=== PATIENT | male | born 1975 | race Caucasian/White ===

== ENCOUNTER 2022-03-04 20:14 | Inpatient (IN) | payer MEDICAID, SELFPAY ==
--- NOTE | ~2022-03-04 | US_ITS ---
EXAMINATION: ULTRASOUND-GUIDED PARACENTESIS CLINICAL INFORMATION: Ascites COMPARISON: None TECHNIQUE: Seizure medicine benefits including bleeding, infection and low blood pressure were discussed with the patient and informed consent was obtained. The right lower quadrant was prepped and draped in the usual sterile fashion. Skin and soft tissues were anesthetized with 1% lidocaine plain. Using ultrasound guidance and a 5 [place] rapid centesis catheter, access to the ascitic fluid was obtained. 3.3 L of clear yellow fluid was removed. Diagnostic specimen was sent as requested by the ordering physician. FINDINGS: There is a small to moderate amount of ascites. US/US paracentesis abd w/image IMPRESSION: Ultrasound-guided paracentesis.
--- NOTE | ~2022-03-04 | CT_ITS ---
EXAMINATION: CT ABDOMEN AND PELVIS WITHOUT CONTRAST CLINICAL INFORMATION: Abdominal pain COMPARISON: None TECHNIQUE: Multidetector volumetric imaging was performed from the superior aspect of the liver through the pubic symphysis. Sagittal and coronal reformatted images were obtained on the technologist's workstation. This CT examination was performed using dose optimization techniques as appropriate, variously including the following: *Automated exposure control *Adjustment of mA and/or kV according to patient size (this includes techniques or standardized protocols for targeted exams where dose is matched to indication/reason for exam; i.e. extremities or head) *Use of iterative reconstruction technique DLP: 632 mGy-cm FINDINGS: LUNG BASES: Small calcified granulomas in the left lower lobe and left hilum. Lung bases otherwise clear. LIVER, GALLBLADDER, AND BILIARY TREE: The liver is mildly enlarged of the right lobe measuring 18.3 cm in craniocaudal extent. Slightly nodular liver surface contour and slight prominence of the caudate lobe. Suspected recanalized periumbilical vein. No gross liver lesions. No biliary ductal dilation. Incompletely distended. No calcified gallstones. Nonspecific pericholecystic fluid in the setting of ascites. PANCREAS: Unremarkable. SPLEEN: Normal size. No splenic lesion. ADRENAL GLANDS: Unremarkable. KIDNEYS AND URETERS: The kidneys are normal in size, shape, and attenuation. No hydronephrosis, hydroureter, or calculi seen. No perinephric stranding. BLADDER: Unremarkable. GASTROINTESTINAL TRACT: Small hiatal hernia. No dilated bowel loops. Slightly thick-walled appearance of the cecum. No other bowel wall thickening. Moderate to large volume ascites and diffuse mesenteric edema. No intra-abdominal free air. Appendix is visualized and appears normal caliber though surrounded by ascites. ABDOMINAL WALL: Small fat-containing umbilical hernia. LYMPH NODES: No appreciable lymphadenopathy. VASCULAR: Normal caliber abdominal aorta. Dilated IMV with perirectal varices. Possible small paraesophageal varices-Limited assessment due to lack of intravenous contrast. PELVIC VISCERA: Unremarkable. OSSEOUS STRUCTURES: No acute fracture or suspicious osseous lesion. Multilevel degenerative disc disease most prominently at L2-L3 and L3-L4 where there is moderate disc height loss and mild retrolisthesis. CT/CT abdomen pelvis wo con IMPRESSION: 1. Findings suggesting underlying liver disease/fibrosis and portal hypertension with recanalized umbilical vein, dilated IMV with large perirectal varices, and moderate to large volume ascites. Additional possible small paraesophageal varices. Correlate with history of known liver disease/cirrhosis. 2. Slightly thick-walled appearance of the cecum which could be due to focal colitis or portal colopathy. No additional bowel wall thickening. No dilated bowel loops.
--- NOTE | ~2022-03-04 | XR_ITS ---
EXAMINATION: XR CHEST CLINICAL INFORMATION: Cough COMPARISON: Chest x-ray 12/30/2008 TECHNIQUE: Frontal view of the chest was obtained. FINDINGS: No airspace consolidation. Calcified granulomas in the left lower lung and left hilum are redemonstrated. Cardiomediastinal silhouette is within normal limits. No evidence of pulmonary edema. No acute osseous injury. XR/XR chest 1V IMPRESSION: 1. No acute pulmonary process.
[2022-03-04 20:32] VITALS: BP 139/87; BP 140/90; PULSE 130; PULSE 140; RESP 20; O2SAT 98; BMI 26.2
[2022-03-04 20:47] LABS: MANUAL DIFF FLAG NO
[2022-03-04 20:50] LABS: Basophils Percent Auto 0.3 % (0-2); Hematocrit 26.4 % (42.0-52.0); Hemoglobin 8.8 g/dl (14.0-18.0); Imm Gran Abs Auto 0.04 X10*3/uL (0.00-0.03); Imm Gran Pct Auto 0.4 % (0.0-0.4); Lymphocytes Absolute Auto 2.2 X10*3/uL (1.2-4.9); Lymphocytes Percent Auto 20.8 % (20-40); Mean Corpuscular HGB Conc 33.3 g/dl (31.0-36.0); Mean Corpuscular Hemoglobin 33.8 pg (27.0-33.0); Mean Corpuscular Volume 101.5 fL (80.0-98.0); Mean Platelet Volume 12.3 fL (9.4-12.4); Monocytes Absolute Auto 0.6 X10*3/uL (0.1-1.2); Monocytes Percent Auto 5.6 % (2-11); Neutrophils Absolute Auto 7.6 x10*3/uL (2.0-8.3); Neutrophils Percent Auto 72.9 % (45-73); OBS1 POSITIVE (NEGATIVE); Red Cell Distribution Width 18.6 % (11.0-16.0); White Blood Count 10.4 X10*3/uL (4.8-10.8)
[2022-03-04 20:51] LABS: OBS Int Ctl Valid YES; Platelet Count 91 X10*3/uL (160-400)
--- NOTE | 2022-03-04 20:53 | ED_ITS ---
HPI - Nausea/Vomiting/Diarrhea General Chief complaint: GI Bleed Stated complaint: n/v/d ?gi bleed Time Seen by Provider: 03/04/22 20:36 Source: patient and EMS Mode of arrival: EMS Limitations: no limitations History of Present Illness HPI Narrative: this is a 46 years old male with history of alcohol abuse presented to the emergency department with a chief complaint of nausea vomiting diarrhea. He states that he drinks daily for the last couple of days has been vomiting and having diarrhea. Also he states that he has black stools. He denies any fever. MD elicited complaint: nausea, vomiting and diarrhea Pertinent past history: alcohol abuse Onset (ago): day(s) (2) Description of vomiting: watery Description of diarrhea: watery Associated nausea: Yes Associated abdominal pain: No Quality: cramping Exacerbating factors: vomiting Relieving factors: vomiting Associated symptoms: denies other symptoms Related Data Home Medications Medication Instructions Recorded Confirmed folic acid 1 mg tablet 1 mg PO DAILY 03/04/22 03/04/22 lisinopril 20 mg tablet 20 mg PO DAILY 03/04/22 03/04/22 multivitamin 1 tab PO DAILY 03/04/22 03/04/22 pyridoxine (vitamin B6) 100 mg 100 mg PO DAILY 03/04/22 03/04/22 tablet thiamine HCl (vitamin B1) 100 mg 100 mg PO DAILY 03/04/22 03/04/22 tablet Allergies Allergy/AdvReac Type Severity Reaction Status Date / Time No Known Allergies Allergy Unverified 05/08/20 15:09 Review of Systems Review of Systems: Yes all other systems are reviewed and are negative Respiratory: Respiratory: Reports no additional respiratory complaints Gastrointestinal: Gastrointestinal: Reports nausea and Reports vomiting [facility] Past Medical History [facility] Narrative: Alcohol abuse,Esophageal varices Social History Social History Advance Directives: No Physical Exam Vital Signs: Vital Signs: Last Vital Signs Pulse 130 H 03/04/22 20:32 Resp 20 03/04/22 20:32 BP 139/87 03/04/22 20:32 Pulse Ox 98 03/04/22 20:32 O2 Del Method 03/04/22 20:32 BMI result Body Mass Index 26.2 Const: General: cooperative and anxious Nutritional Appearance: average body habitus Orientation/consciousness: patient oriented x3 Limitations: no limitations HEENT: Head: Yes normal to inspection Face and sinus: Yes normal facial exam Mouth: Normal oral and palatal mucosa present Throat: Yes posterior oropharynx normal Neck: Neck: Yes normal visual inspection and Yes full ROM Chest: Chest palpation & inspection: normal inspection of the chest Resp: Effort & Inspection: normal respiratory effort Auscultation: clear to auscultation bilaterally Cardio: Jugular venous distension: no JVD Rate: regular rate and tachycardic Rhythm: regular rhythm GI: Inspection: Yes normal to inspection Palpation (GI): Soft to palpation Rectal Exam - Male: Yes normal sphincter tone and Yes heme positive stool Skin: General skin exam: no rashes or lesions noted and elasticity normal Lesions: no lesions Nails: normal Neuro: General: patient oriented x3 Course Reevaluation(s) Reevaluation #1: he states that he is feeling better at this time, heart rate is coming down remain normotensive Time: 21:48 Reevaluation #2: SPOKE WITH GI dr CUNNINGHAM to be keep npo MDM - Nausea/Vomiting/Diarrhea Lab Data Result diagrams: 03/04/22 20:43 03/04/22 20:43 Labs: Lab Results 03/04/22 03/04/22 03/04/22 Range/Units 20:43 20:43 20:43 WBC 10.4 (4.8-10.8) X10*3/uL RBC 2.60 L (4.60-5.80) X10*6/uL Hgb 8.8 L (14.0-18.0) g/dl Hct 26.4 L (42.0-52.0) % MCV 101.5 H (80.0-98.0) fL MCH 33.8 H (27.0-33.0) pg MCHC 33.3 (31.0-36.0) g/dl RDW 18.6 H (11.0-16.0) % Plt Count 91 L (160-400) X10*3/uL MPV 12.3 (9.4-12.4) fL Immature Gran % (Auto) 0.4 (0.0-0.4) % Neut % (Auto) 72.9 (45-73) % Lymph % (Auto) 20.8 (20-40) % [place] % (Auto) 5.6 (2-11) % Eos % (Auto) 0.0 (0-4) % Baso % (Auto) 0.3 (0-2) % Lymph # (Auto) 2.2 (1.2-4.9) X10*3/uL [place] # (Auto) 0.6 (0.1-1.2) X10*3/uL Eos # (Auto) 0.0 (0.0-0.4) X10*3/uL Baso # (Auto) 0.0 (0.0-0.2) X10*3/uL Abs Immat Gran (auto) 0.04 H (0.00-0.03) X10*3/uL Absolute Neuts (auto) 7.6 (2.0-8.3) x10*3/uL Absolute Nucleated RBC 0.000 (0.0-0.012) X10*3/uL Nucleated RBC % (auto) 0.0 (0.0-0.2) /100WBC PT 17.4 H (10.0-13.1) SEC INR 1.5 H (0.9-1.1) APTT 33.0 (24.1-38.0) SEC Sodium 136 (135-145) mmol/L Potassium 4.2 (3.3-5.1) mmol/L Chloride 102 (96-108) mmol/L Carbon Dioxide 22 (22-29) mmol/L Anion Gap 16 (12-20) BUN 21 H (9-16) mg/dL Creatinine 0.86 (0.5-1.4) mg/dL Estim Creat Clear Calc 116.7 Estimated GFR > 60 Random Glucose 128 H (60-115) mg/dL Calcium 9.3 (8.4-10.2) mg/dL Total Bilirubin 2.1 H (0.0-1.0) mg/dL AST 192 H (5-37) U/L ALT 44 H (0-40) U/L Alkaline Phosphatase 92 (39-117) U/L Total Protein 6.8 (6.5-8.0) g/dL Albumin 3.0 L (3.5-5.0) g/dL Lipase 98 H (8-78) U/L Stool Occult Blood (NEGATIVE) COVID-19 (CHAN) (Negative) COVID-19 Clin Com Blood Type Antibody Screen 03/04/22 03/04/22 03/04/22 Range/Units 20:43 20:43 20:51 WBC (4.8-10.8) X10*3/uL RBC (4.60-5.80) X10*6/uL Hgb (14.0-18.0) g/dl Hct (42.0-52.0) % MCV (80.0-98.0) fL MCH (27.0-33.0) pg MCHC (31.0-36.0) g/dl RDW (11.0-16.0) % Plt Count (160-400) X10*3/uL MPV (9.4-12.4) fL Immature Gran % (Auto) (0.0-0.4) % Neut % (Auto) (45-73) % Lymph % (Auto) (20-40) % [place] % (Auto) (2-11) % Eos % (Auto) (0-4) % Baso % (Auto) (0-2) % Lymph # (Auto) (1.2-4.9) X10*3/uL [place] # (Auto) (0.1-1.2) X10*3/uL Eos # (Auto) (0.0-0.4) X10*3/uL Baso # (Auto) (0.0-0.2) X10*3/uL Abs Immat Gran (auto) (0.00-0.03) X10*3/uL Absolute Neuts (auto) (2.0-8.3) x10*3/uL Absolute Nucleated RBC (0.0-0.012) X10*3/uL Nucleated RBC % (auto) (0.0-0.2) /100WBC PT (10.0-13.1) SEC INR (0.9-1.1) APTT (24.1-38.0) SEC Sodium (135-145) mmol/L Potassium (3.3-5.1) mmol/L Chloride (96-108) mmol/L Carbon Dioxide (22-29) mmol/L Anion Gap (12-20) BUN (9-16) mg/dL Creatinine (0.5-1.4) mg/dL Estim Creat Clear Calc Estimated GFR Random Glucose (60-115) mg/dL Calcium (8.4-10.2) mg/dL Total Bilirubin (0.0-1.0) mg/dL AST (5-37) U/L ALT (0-40) U/L Alkaline Phosphatase (39-117) U/L Total Protein (6.5-8.0) g/dL Albumin (3.5-5.0) g/dL Lipase (8-78) U/L Stool Occult Blood POSITIVE (NEGATIVE) COVID-19 ([facility]AN) Negative (Negative) COVID-19 Clin Com See Note Blood Type A Positive Antibody Screen NEGATIVE Discharge Plan Discharge Clinical Impression: Alcohol withdrawal syndrome, Vomiting
[2022-03-04] MEDS: ondansetron HCL 4 MG/2 ML VIAL IVPUSH (20:54)
[2022-03-04] MEDS: Pantoprazole Sodium 40 MG/10 ML VIAL IVPUSH (20:55)
[2022-03-04 20:56] LABS: INTERNATIONAL NORM RATIO 1.5 (0.9-1.1); Prothrombin Time 17.4 SEC (10.0-13.1)
[2022-03-04] MEDS: 0.9 % Sodium Chloride 1,000 ML 999 ML IVCONT (20:57)
[2022-03-04] MEDS: diazePAM 10 MG/2 ML CARTRIDGE 5 MG IVPUSH (21:00)
[2022-03-04 21:08] LABS: COVID-19 Test Negative (Negative)
[2022-03-04 21:11] LABS: Alanine Aminotransferase 44 U/L (0-40); Alkaline Phosphatase 92 U/L (39-117); Anion Gap 16 (12-20); Aspartate Amino Transferase 192 U/L (5-37); Bilirubin Total 2.1 mg/dL (0.0-1.0); Blood Urea Nitrogen 21 mg/dL (9-16); Calcium 9.3 mg/dL (8.4-10.2); Carbon Dioxide 22 mmol/L (22-29); Chloride 102 mmol/L (96-108); Creatinine Clr Calc Pharmacy 116.7; Estimated Glomerular Filt Rate > 60; Glucose Random 128 mg/dL (60-115); Lipase 98 U/L (8-78); Potassium 4.2 mmol/L (3.3-5.1); Sodium 136 mmol/L (135-145); Total Protein 6.8 g/dL (6.5-8.0)
--- NOTE | 2022-03-04 22:17 | PHA.MEDREC ---
Pharmacy Consult ? Medication Reconciliation Pharmacy has completed the medication reconciliation. spoke with pt who knew dosage but not name of bp med. Called [facility] and verified all doses pt reported
--- NOTE | 2022-03-04 22:22 | P.HPHOSP_ITS ---
History of Present Illness Date of Service: 03/04/22 Chief Complaint: Vomiting blood This is a 46-year-old male with past medical history of abuse, as well as esophageal varices who presents to the hospital with complaints of bloody vomitus . Patient reports that he woke up at 2 in the morning with multiple episodes of bloody vomiting that resolved around 04:00. Reports that he could not come to the hospital right away and decided to come to the hospital several hours later. He reports his last drink was at 12:00, he does have history of withdrawals with no withdrawal seizures. Patient reports that he was also admitted to [facility] few weeks ago with the same complaint found to have variceal bleed, he had banding at that time but left AMA. He reports that he continues to drink and has not followed outpatient with GI. He is complaining of epigastric abdominal pain, no diarrhea constipation, no urinary symptoms and no lower extremity edema. No headache or change in vision, numbness tingling. At this time he does feel like he is withdrawing from alcohol as he has shivers, shakes, feels nervous and agitated. On arrival to the ED patient was found to have a heart rate of 130 otherwise vitals unremarkable Labs are significant for WBC count of 10.4, hemoglobin of 8.8, hematocrit 26.4 (when compared to a recent H&H from [facility], H&H stable), lipase of 98, UA negative, UDS positive for barbiturates and marijuana. Patient denies drug use. Stool occult blood positive Abdominal pelvic CT showed underlying liver disease/fibrosis and portal hypertension with recanalized umbilical vein. Dilated IMV with large perirectal varices and moderate to large volume ascites. Additional possible small paraesophageal varices. Patient will be admitted for further management Review of Systems Review of Systems: Yes all other systems are reviewed and are negative [facility] Medical History (Updated 03/05/22 @ 06:09 by Corky Falcon MD) Alcohol abuse Esophageal varices Hypertension Family History (Updated 03/05/22 @ 06:09 by Corky Falcon MD) Father Cancer Surgical History (Updated 03/05/22 @ 06:09 by Corky Falcon MD) No pertinent past surgical history Social History (Updated 03/05/22 @ 06:09 by Corky Falcon MD) Alcohol intake: current Patient Tobacco Use Status: Current everyday Tobacco user Cigarette Packs Per Day: 1 Substance Use Type: Marijuana Advance Directives: No Meds Allergies Allergy/AdvReac Type Severity Reaction Status Date / Time No Known Allergies Allergy Unverified 05/08/20 15:09 Active Medications: Current Medications Acetaminophen (Acetaminophen 325 Mg Tablet) 650 mg PO Q6H PRN PRN Reason: Pain, Mild (Pain Scale 1-3) Docusate Sodium (Docusate Sodium 100 Mg Capsule) 100 mg PO DAILY PRN PRN Reason: Constipation Folic Acid (Folic Acid 1 Mg Tablet) 1 mg PO DAILY [facility] Ondansetron HCl (Ondansetron Hcl 4 Mg/2 Ml Vial) 4 mg IVPUSH Q8H PRN PRN Reason: Nausea and Vomiting Pharmacy Consult (Consult Rx Perform Med Rec) 1 each MISCELLANE ONCE PRN PRN Reason: Consult order Pharmacy Consult (Consult Rx Etoh Phenob Im/Po) 1 each MISCELLANE ONCE PRN; Protocol PRN Reason: Consult order Phenobarbital (Phenobarbital 30 Mg Tablet) 60 mg PO BID [facility]; Protocol Stop: 03/07/22 09:01 Phenobarbital (Phenobarbital 30 Mg Tablet) 30 mg PO BID [facility]; Protocol Stop: 03/09/22 09:01 Phenobarbital (Phenobarbital 30 Mg Tablet) 30 mg PO BEDTIME [facility]; Protocol Stop: 03/10/22 21:01 Phenobarbital Sodium (Phenobarbital Sodium 130 Mg/Ml Vial Im Q3hx2) 226 mg IM Q3H SELMA; Protocol Stop: 03/05/22 04:01 Sodium Chloride (0.9 % Sodium Chloride Flush 3 Ml Syringe) 3 ml IVFLUSH QSHIFT [facility] Thiamine HCl (Thiamine Hcl 100 Mg Tablet) 100 mg PO DAILY [facility] Home Medications Medication Instructions Recorded Confirmed Last Taken Type folic acid 1 mg tablet 1 mg PO DAILY 03/04/22 03/04/22 Unknown History lisinopril 20 mg tablet 20 mg PO DAILY 03/04/22 03/04/22 Unknown History multivitamin 1 tab PO DAILY 03/04/22 03/04/22 Unknown History pyridoxine (vitamin B6) 100 mg 100 mg PO DAILY 03/04/22 03/04/22 Unknown History tablet thiamine HCl (vitamin B1) 100 mg 100 mg PO DAILY 03/04/22 03/04/22 Unknown His tory tablet Physical Exam Vital Signs and Narrative: Vital Signs: Last Vital Signs Pulse 130 H 03/04/22 20:32 Resp 20 03/04/22 20:32 BP 139/87 03/04/22 20:32 Pulse Ox 98 03/04/22 20:32 O2 Del Method 03/04/22 20:32 BMI result Body Mass Index 26.2 Const: General: cooperative and no acute distress Orientation/consciousness: patient oriented x3 Eyes: General: appearance normal, both eyes and all related structures Resp: Effort & Inspection: normal respiratory effort Auscultation: clear to auscultation bilaterally Cardio: Rate: regular rate Rhythm: regular rhythm GI: Other: Abdomen is distended, no tenderness, rebound or guarding Palpation (GI): Soft to palpation Skin: General skin exam: no rashes or lesions noted Neuro: General: patient oriented x3 Cognition (Neuro): normal cognition Extrem: General: Yes normal to inspection and Yes no pedal edema Results Labs CBC and Chem 7: 03/04/22 20:43 03/04/22 20:43 Labs: Laboratory Results - last 24 hr 03/04/22 03/04/22 03/04/22 20:43 20:43 20:43 MCV 101.5 H MCH 33.8 H MCHC 33.3 RDW 18.6 H Plt Count 91 L MPV 12.3 Immature Gran % (Auto) 0.4 Neut % (Auto) 72.9 Lymph % (Auto) 20.8 [place] % (Auto) 5.6 Eos % (Auto) 0.0 Baso % (Auto) 0.3 Lymph # (Auto) 2.2 [place] # (Auto) 0.6 Eos # (Auto) 0.0 Baso # (Auto) 0.0 Abs Immat Gran (auto) 0.04 H Absolute Neuts (auto) 7.6 Absolute Nucleated RBC 0.000 Nucleated RBC % (auto) 0.0 PT 17.4 H INR 1.5 H APTT 33.0 Anion Gap 16 Estim Creat Clear Calc 116.7 Estimated GFR > 60 Random Glucose 128 H Calcium 9.3 Total Bilirubin 2.1 H AST 192 H ALT 44 H Alkaline Phosphatase 92 Total Protein 6.8 Albumin 3.0 L Lipase 98 H Stool Occult Blood COVID-19 ([facility]) COVID-19 Clin Com Blood Type Antibody Screen 03/04/22 03/04/22 03/04/22 20:43 20:43 20:51 MCV MCH MCHC RDW Plt Count MPV Immature Gran % (Auto) Neut % (Auto) Lymph % (Auto) [place] % (Auto) Eos % (Auto) Baso % (Auto) Lymph # (Auto) [place] # (Auto) Eos # (Auto) Baso # (Auto) Abs Immat Gran (auto) Absolute Neuts (auto) Absolute Nucleated RBC Nucleated RBC % (auto) PT INR APTT Anion Gap Estim Creat Clear Calc Estimated GFR Random Glucose Calcium Total Bilirubin AST ALT Alkaline Phosphatase Total Protein Albumin Lipase Stool Occult Blood POSITIVE COVID-19 (CHAN) Negative COVID-19 Clin Com See Note Blood Type A Positive Antibody Screen NEGATIVE Assessment and Plan (1) Hematemesis: Status: Acute (2) GI bleed: Status: Acute (3) Esophageal varices: Status: Acute (4) Alcohol abuse with withdrawal: Status: Acute Plan 46-year-old male with past medical history of alcohol abuse as well as history of variceal bleed from recent hospital stay at [facility] presents to the hospital with hematemesis found to have heme-positive stool and evidence of GI bleed # hematemesis - likely secondary to esophageal varices in the setting of history of liver disease secondary to alcohol abuse - will start him on octreotide, pantoprazole - NPO - GI consulted - hemodynamically stable, H&H stable - has not had any hematemesis well in the ED - close monitoring # esophageal varices - likely secondary to portal hypertension in the setting of alcohol abuse - plan for endoscopy in a.m. - octreotide drip # alcohol abuse with withdrawal - daily drinker - has evidence of alcohol withdrawal - start on phenobarb protocol - thiamine and folic acid supplement # hypertension - continue lisinopril DVT prophylaxis: SCDs in the setting of hematemesis Given the need for further evaluation patient will require a minimum 2 night hospital stay for further management and monitoring Quality Stroke Does the patient have a stroke diagnosis?: No VTE Prior VTE?: No VTE Risk Level:: Medical - moderate - high VTE Device Contraindication: N/A - Device Ordered VTE Drug Contraindication: Treatment Not Indicated
[2022-03-04] MEDS: PHENobarbitaL sodium 130 MG/ML IM ONCE 300 MG IM (22:40)
--- NOTE | 2022-03-04 22:45 | PC.NURSE ---
pharmacy contacted for verification of octritide .
--- NOTE | 2022-03-04 22:51 | ED_ITS ---
HPI - Nausea/Vomiting/Diarrhea General Chief complaint: GI Bleed Stated complaint: n/v/d ?gi bleed Time Seen by Provider: 03/04/22 20:36 Source: patient Mode of arrival: EMS History of Present Illness HPI Narrative: this is a 46 years old patient with history of alcohol abuse presented to the emergency department by ambulance complaining of nausea vomiting and diarrhea. He has history of esophageal varices, was hospitalized [facility] end January for upper GI bleeding MD elicited complaint: nausea, vomiting and diarrhea Description of diarrhea: watery and other (black) Associated nausea: Yes Radiation: diffuse Quality: cramping Exacerbating factors: none Relieving factors: none Associated symptoms: diaphoresis, loss of appetite and nausea/vomiting Related Data Home Medications Medication Instructions Recorded Confirmed folic acid 1 mg tablet 1 mg PO DAILY 03/04/22 03/04/22 lisinopril 20 mg tablet 20 mg PO DAILY 03/04/22 03/04/22 multivitamin 1 tab PO DAILY 03/04/22 03/04/22 pyridoxine (vitamin B6) 100 mg 100 mg PO DAILY 03/04/22 03/04/22 tablet thiamine HCl (vitamin B1) 100 mg 100 mg PO DAILY 03/04/22 03/04/22 tablet Allergies Allergy/AdvReac Type Severity Reaction Status Date / Time No Known Allergies Allergy Unverified 05/08/20 15:09 Review of Systems Constitutional: Constitutional: Reports no additional constitutional complaints Eyes: Eyes: Reports no additional eye complaints Cardiovascular: Cardiovascular: Reports lightheadedness Gastrointestinal: Gastrointestinal: Reports no additional gastrointestinal complaints, Reports diarrhea, Reports loose stools, Reports nausea and Reports vomiting [facility] Past Medical History [facility] Narrative: alcohol abuse, esophageal varices Social History Social History Advance Directives: No Physical Exam Vital Signs: Vital Signs: Last Vital Signs Pulse 124 H 03/04/22 22:58 Resp 20 03/04/22 22:58 BP 119/84 03/04/22 22:58 Pulse Ox 94 03/04/22 22:58 O2 Del Method 03/04/22 22:58 BMI result Body Mass Index 26.2 Const: General: cooperative and anxious Nutritional Appearance: average body habitus Orientation/consciousness: patient oriented x3 Limitations: no limitations HEENT: Head: Yes normal to inspection General nose exam: Normal external nose present Face and sinus: Yes normal facial exam Mouth: Normal oral and palatal mucosa present Throat: Yes posterior oropharynx normal Neck: Neck: Yes normal visual inspection and Yes full ROM Chest: Chest palpation & inspection: normal inspection of the chest Resp: Effort & Inspection: normal respiratory effort and able to speak in complete sentences Auscultation: clear to auscultation bilaterally Cardio: Jugular venous distension: no JVD Rate: regular rate and tachycardic GI: Inspection: Yes normal to inspection Palpation (GI): Soft to palpation Rectal Exam - Male: Yes heme positive stool Skin: General skin exam: no rashes or lesions noted Neuro: General: patient oriented x3 Cranial nerves: Yes CN's II-XII intact bilaterally Course Reevaluation(s) Reevaluation #1: he is improving clinically his heart coming down remain normotensive. I discussed the case with GI Dr. Dawn and hospitalist. The patient will be admitted to telemetry Time: 22:56 MDM - Nausea/Vomiting/Diarrhea Lab Data Result diagrams: 03/04/22 20:43 03/04/22 20:43 Labs: Lab Results 03/04/22 03/04/22 03/04/22 Range/Units 20:43 20:43 20:43 WBC 10.4 (4.8-10.8) X10*3/uL RBC 2.60 L (4.60-5.80) X10*6/uL Hgb 8.8 L (14.0-18.0) g/dl Hct 26.4 L (42.0-52.0) % MCV 101.5 H (80.0-98.0) fL MCH 33.8 H (27.0-33.0) pg MCHC 33.3 (31.0-36.0) g/dl RDW 18.6 H (11.0-16.0) % Plt Count 91 L (160-400) X10*3/uL MPV 12.3 (9.4-12.4) fL Immature Gran % (Auto) 0.4 (0.0-0.4) % Neut % (Auto) 72.9 (45-73) % Lymph % (Auto) 20.8 (20-40) % [place] % (Auto) 5.6 (2-11) % Eos % (Auto) 0.0 (0-4) % Baso % (Auto) 0.3 (0-2) % Lymph # (Auto) 2.2 (1.2-4.9) X10*3/uL [place] # (Auto) 0.6 (0.1-1.2) X10*3/uL Eos # (Auto) 0.0 (0.0-0.4) X10*3/uL Baso # (Auto) 0.0 (0.0-0.2) X10*3/uL Abs Immat Gran (auto) 0.04 H (0.00-0.03) X10*3/uL Absolute Neuts (auto) 7.6 (2.0-8.3) x10*3/uL Absolute Nucleated RBC 0.000 (0.0-0.012) X10*3/uL Nucleated RBC % (auto) 0.0 (0.0-0.2) /100WBC PT 17.4 H (10.0-13.1) SEC INR 1.5 H (0.9-1.1) APTT 33.0 (24.1-38.0) SEC Sodium 136 (135-145) mmol/L Potassium 4.2 (3.3-5.1) mmol/L Chloride 102 (96-108) mmol/L Carbon Dioxide 22 (22-29) mmol/L Anion Gap 16 (12-20) BUN 21 H (9-16) mg/dL Creatinine 0.86 (0.5-1.4) mg/dL Estim Creat Clear Calc 116.7 Estimated GFR > 60 Random Glucose 128 H (60-115) mg/dL Calcium 9.3 (8.4-10.2) mg/dL Total Bilirubin 2.1 H (0.0-1.0) mg/dL AST 192 H (5-37) U/L ALT 44 H (0-40) U/L Alkaline Phosphatase 92 (39-117) U/L Total Protein 6.8 (6.5-8.0) g/dL Albumin 3.0 L (3.5-5.0) g/dL Lipase 98 H (8-78) U/L Stool Occult Blood (NEGATIVE) COVID-19 ([facility]) (Negative) COVID-19 Clin Com Blood Type Antibody Screen 03/04/22 03/04/22 03/04/22 Range/Units 20:43 20:43 20:51 WBC (4.8-10.8) X10*3/uL RBC (4.60-5.80) X10*6/uL Hgb (14.0-18.0) g/dl Hct (42.0-52.0) % MCV (80.0-98.0) fL MCH (27.0-33.0) pg MCHC (31.0-36.0) g/dl RDW (11.0-16.0) % Plt Count (160-400) X10*3/uL MPV (9.4-12.4) fL Immature Gran % (Auto) (0.0-0.4) % Neut % (Auto) (45-73) % Lymph % (Auto) (20-40) % [place] % (Auto) (2-11) % Eos % (Auto) (0-4) % Baso % (Auto) (0-2) % Lymph # (Auto) (1.2-4.9) X10*3/uL [place] # (Auto) (0.1-1.2) X10*3/uL Eos # (Auto) (0.0-0.4) X10*3/uL Baso # (Auto) (0.0-0.2) X10*3/uL Abs Immat Gran (auto) (0.00-0.03) X10*3/uL Absolute Neuts (auto) (2.0-8.3) x10*3/uL Absolute Nucleated RBC (0.0-0.012) X10*3/uL Nucleated RBC % (auto) (0.0-0.2) /100WBC PT (10.0-13.1) SEC INR (0.9-1.1) APTT (24.1-38.0) SEC Sodium (135-145) mmol/L Potassium (3.3-5.1) mmol/L Chloride (96-108) mmol/L Carbon Dioxide (22-29) mmol/L Anion Gap (12-20) BUN (9-16) mg/dL Creatinine (0.5-1.4) mg/dL Estim Creat Clear Calc Estimated GFR Random Glucose (60-115) mg/dL Calcium (8.4-10.2) mg/dL Total Bilirubin (0.0-1.0) mg/dL AST (5-37) U/L ALT (0-40) U/L Alkaline Phosphatase (39-117) U/L Total Protein (6.5-8.0) g/dL Albumin (3.5-5.0) g/dL Lipase (8-78) U/L Stool Occult Blood POSITIVE (NEGATIVE) COVID-19 ([facility]) Negative (Negative) COVID-19 Clin Com See Note Blood Type A Positive Antibody Screen NEGATIVE Imaging Data CT scan - abdomen: Radiologist's impression: ?IMV with perirectal varices. Possible small paraesophageal varices-Limited assessment due to lack of intravenous contrast. PELVIC VISCERA: Unremarkable.? OSSEOUS STRUCTURES: No acute fracture or suspicious osseous lesion. Multilevel degenerative disc disease most prominently at L2-L3 and L3-L4 where there is moderate disc height loss and mild retrolisthesis. ? CT/CT abdomen pelvis wo con IMPRESSION: ? 1. Findings suggesting underlying liver disease/fibrosis and portal hypertension with recanalized umbilical vein, dilated IMV with large perirectal varices, and moderate to large volume ascites. Additional possible small paraesophageal varices. Correlate with history of known liver disease/cirrhosis. 2. Slightly thick-walled appearance of the cecum which could be due to focal colitis or portal colopathy. No additional bowel wall thickening. No dilated bowel loops.? ? Critical Care Time Critical Care Time Critical Care Time: Yes Total Critical Care Time: 60 Attestation: IV valium,Phenobarbital Discharge Plan Discharge Clinical Impression: Alcohol withdrawal syndrome, Vomiting
[2022-03-04 22:58] VITALS: BP 119/84; PULSE 124; RESP 20; O2SAT 94
[2022-03-04] MEDS: Octreotide Acetate 100 MCG/ML AMPUL 50 MCG IVPUSH (23:06)
[2022-03-04] MEDS: Octreotide Acetate 500 MCG in 0.9 % Sodium Chloride 500 ML 50.1 MCG IVCONT (23:06)
[2022-03-04] MEDS: Lactated Ringers 1,000 ML 100 ML IVCONT (23:10)
[2022-03-05] VITALS (14 sets, daily range): BP systolic 80–136; BP diastolic 46–82; PULSE 58–115; RESP 15–24; TEMP 36.7–37.4; O2SAT 92–100
[2022-03-05] MEDS: Nicotine 21 MG PATCH.TD24 TRANSDERMA (00:17)
[2022-03-05] MEDS: PHENobarbitaL sodium 130 MG/ML VIAL IM Q3Hx2 226 MG IM ×3 (01:04→11:43)
[2022-03-05 04:26] LABS: Appearance Urine CLOUDY; Color Urine YELLOW; Glucose Urine UA NEG (NEG); Leukocyte Esterase Urine NEG (NEG); Nitrite Urine NEG (NEG); Urine Blood NEG (NEG); Urine Ketones NEG (NEG); Urine Protein NEG (NEG-TRACE)
[2022-03-05 04:39] LABS: Amphetamine Screen Urine Not Detected (Not Detect); Barbiturates, Urine POSITIVE (Not Detect); Benzodiazepines Screen Urine Not Detected (Not Detect); Cannabinoid Screen Urine POSITIVE (Not Detect); Cocaine Screen Urine Not Detected (Not Detect); Fentanyl, urine Not Detected (Not Detect); Opiate Screen Urine Not Detected (Not Detect); Phencyclidine Screen Urine Not Detected (Not Detect)
[2022-03-05 05:04] LABS: Amorphous Sediment Urine 3+ /LPF; Mucus Urine 1+ /LPF; RBC Urine 0 /HPF (0); WBC Urine 0-2 /HPF (0-4)
--- NOTE | 2022-03-05 05:26 | PC.NURSE ---
pt resting in bed, no distress
[2022-03-05] MEDS: Pantoprazole Sodium 40 MG/10 ML VIAL IVPUSH ×2 (06:07→16:54)
[2022-03-05 06:46] LABS: MANUAL DIFF FLAG NO
[2022-03-05 06:51] LABS: Basophils Percent Auto 0.4 % (0-2); Eosinophils Percent Auto 0.4 % (0-4); Hematocrit 24.5 % (42.0-52.0); Imm Gran Abs Auto 0.03 X10*3/uL (0.00-0.03); Imm Gran Pct Auto 0.4 % (0.0-0.4); Lymphocytes Absolute Auto 1.8 X10*3/uL (1.2-4.9); Lymphocytes Percent Auto 23.7 % (20-40); Mean Corpuscular HGB Conc 32.7 g/dl (31.0-36.0); Mean Corpuscular Hemoglobin 33.8 pg (27.0-33.0); Mean Corpuscular Volume 103.4 fL (80.0-98.0); Mean Platelet Volume 11.6 fL (9.4-12.4); Monocytes Absolute Auto 0.4 X10*3/uL (0.1-1.2); Neutrophils Absolute Auto 5.3 x10*3/uL (2.0-8.3); Neutrophils Percent Auto 70.1 % (45-73); Red Blood Count 2.37 X10*6/uL (4.60-5.80); Red Cell Distribution Width 19.2 % (11.0-16.0); White Blood Count 7.6 X10*3/uL (4.8-10.8)
[2022-03-05 06:52] LABS: Platelet Count 58 X10*3/uL (160-400)
[2022-03-05 07:40] LABS: Anion Gap 13 (12-20); Blood Urea Nitrogen 19 mg/dL (9-16); Calcium 8.2 mg/dL (8.4-10.2); Carbon Dioxide 22 mmol/L (22-29); Chloride 107 mmol/L (96-108); Estimated Glomerular Filt Rate > 60; Glucose Random 130 mg/dL (60-115); Potassium 4.7 mmol/L (3.3-5.1); Sodium 137 mmol/L (135-145)
--- NOTE | 2022-03-05 07:40 | P.CNGI_ITS ---
History of Present Illness Data of Consult Service Date: 03/05/22 Requesting physician: Corky Falcon Primary Care Provider: Adriana Rivera NP HPI Reason for consult: GI Bleeding 46 YM with history of alcohol abuse, as well as esophageal varices who came to [facility] ED on 03/04/22 with complaints of upper abdominal pain and bloody vomitus .? Patient reported that he woke up at 2 am with multiple episodes of bloody vomiting that resolved around 04:00 am.? He noted diffuse stabbing 8/10 abdominal pain with nausea. He noted that he could not come to the hospital right away and decided to come to the hospital several hours later.? Pt reported his last drink was at 12:00 and admits to a history of withdrawals with no withdrawal seizures.? He has not had anything to eat for the past 1.5 days. Patient denies symptoms of dysphagia. He admits to having black stools yeseterday every 20 minutes - none overnight. Patient denies major cardiac or pulmonary problems and admits to loud snoring and denies sleep apnea Denies problems with anesthesia in the past. Denies taking aspirin or NSAIDS or being on chronic anticoagulation. PT admits to smoking 1 pack per day and drinks 15 nips of vodka daily for the past several years. Patient lives with his mother and has one 22-year-old son. 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 Patient denies known family history of liver disease, colon polyps, colon cancer or other GI malignancies. Patient reported that he was also admitted [place] [facility] [place] ago with the same complaint found to have variceal bleed, he had banding at that time but left AMA.? He reports that he continues to drink and has not followed outpatient with GI.? Pt compains of dizziness and shortness of breath. He denies fever, chills or sweating and admits to having hot and cold flashes No headache or change in vision, numbness tingling.? At this time he does feel like he is withdrawing from alcohol as he has shivers, shakes, feels nervous and agitated.? On arrival to the ED patient was found to have a heart rate of 130 otherwise vitals unremarkable Labs are significant for WBC count of 10.4, hemoglobin of 8.8, hematocrit 26.4 (when compared to a recent H&H from [facility], H&H stable), lipase of 98, UA negative, UDS positive for barbiturates and marijuana.? Patient denies drug use.? Stool occult blood positive Abdominal pelvic CT showed underlying liver disease/fibrosis and portal hypertension with recanalized umbilical vein.? Dilated IMV with large perirectal varices and moderate to large volume ascites.? Additional possible small paraesophageal varices. Patient was admitted for further management and started on CIWA protocol, IV PPI and IV octreotide infusion. IMAGING STUDIES: 03/04/[address] SCAN SHOWED: 1. Findings suggesting underlying liver disease/fibrosis and portal hypertension with recanalized umbilical vein, dilated IMV with large perirectal varices, and moderate to large volume ascites. Additional possible small paraesophageal varices. Correlate with history of known liver disease/cirrhosis. 2. Slightly thick-walled appearance of the cecum which could be due to focal colitis or portal colopathy. No additional bowel wall thickening. No dilated bowel loops.? ENDOSCOPIC STUDIES: [] Review of Systems Constitutional: Constitutional: Reports no additional constitutional complaints Eyes: Eyes: Reports no additional eye complaints Cardiovascular: Cardiovascular: Reports lightheadedness and Reports dyspnea on exertion Respiratory: Respiratory: Reports dyspnea on exertion Gastrointestinal: Gastrointestinal: Reports abdominal pain, Reports diarrhea, Reports loose stools, Reports nausea, Reports vomiting and Reports other (Poor appetite) [facility] Past Medical History Medical History Alcohol abuse Cirrhosis Decompensated hepatic cirrhosis Esophageal varices Hypertension Family History Family History Father Cancer Surgical History Surgical History No pertinent past surgical history Social History Social History Household Members: Family Housing: House Alcohol intake: current Alcohol intake frequency: 3 or more drinks per day Alcohol type: hard liquor Patient Tobacco Use Status: Current everyday Tobacco user Tobacco use type: Cigarette Cigarette Packs Per Day: 1 Cigarettes Per Day: 20.0 Substance Use Type: Marijuana Advance Directives: No Advance Directives Information Provided: No service: No Current occupational status: employed Meds Allergies Allergy/AdvReac Type Severity Reaction Status Date / Time No Known Allergies Allergy Verified 04/12/22 12:24 Active Medications: Current Medications Acetaminophen (Acetaminophen 325 Mg Tablet) 650 mg PO Q6H PRN PRN Reason: Pain, Mild (Pain Scale 1-3) Docusate Sodium (Docusate Sodium 100 Mg Capsule) 100 mg PO DAILY PRN PRN Reason: Constipation Folic Acid (Folic Acid 1 Mg Tablet) 1 mg PO DAILY [facility] Last Admin: 03/04/22 22:41 Dose: Not Given Lactated Ringer's (Lr) 1,000 mls @ 100 mls/hr IVCONT .Q10H [facility] Last Admin: 03/04/22 23:10 Dose: 100 mls/hr Octreotide Acetate 500 mcg/ (Sodium Chloride) 501 mls @ 50.1 mls/hr IVCONT .Q10H [facility] Last Admin: 03/04/22 23:06 Dose: 50 mcg/hr, 50.1 mls/hr Lisinopril (Lisinopril 20 Mg Tablet) 20 mg PO DAILY [facility]; Protocol Multivitamins/Vitamin C (Multivitamin Tablet) 1 tab PO DAILY [facility] Nicotine (Nicotine 21 Mg Patch.Td24) 21 mg TRANSDERMA DAILY [facility] Last Admin: 03/05/22 00:17 Dose: 21 mg Ondansetron HCl (Ondansetron Hcl 4 Mg/2 Ml Vial) 4 mg IVPUSH Q8H PRN PRN Reason: Nausea and Vomiting Pantoprazole Sodium (Pantoprazole Sodium 40 Mg/10 Ml Vial) 40 mg IVPUSH BID@0630,1630 [facility] Last Admin: 03/05/22 06:07 Dose: 40 mg Pharmacy Consult (Consult Rx Perform Med Rec) 1 each MISCELLANE ONCE PRN PRN Reason: Consult order Pharmacy Consult (Consult Rx Etoh Phenob Im/Po) 1 each MISCELLANE ONCE PRN; Protocol PRN Reason: Consult order Phenobarbital (Phenobarbital 30 Mg Tablet) 60 mg PO BID [facility]; Protocol Stop: 03/07/22 09:01 Phenobarbital (Phenobarbital 30 Mg Tablet) 30 mg PO BID [facility]; Protocol Stop: 03/09/22 09:01 Phenobarbital (Phenobarbital 30 Mg Tablet) 30 mg PO BEDTIME [facility]; Protocol Stop: 03/10/22 21:01 Pyridoxine HCl (Pyridoxine Hcl (Vitamin B6) 50 Mg Tablet) 100 mg PO DAILY [facility] Sodium Chloride (0.9 % Sodium Chloride Flush 3 Ml Syringe) 3 ml IVFLUSH QSHIFT [facility] Last Admin: 03/05/22 00:18 Dose: Not Given Thiamine HCl (Thiamine Hcl 100 Mg Tablet) 100 mg PO DAILY [facility] Home Medications Medication Instructions Recorded Confirmed Last Taken Type folic acid 1 mg tablet 1 mg PO DAILY 03/04/22 03/04/22 Unknown History multivitamin 1 tab PO DAILY 03/04/22 03/04/22 Unknown History pyridoxine (vitamin B6) 100 mg 100 mg PO DAILY 03/04/22 03/04/22 Unknown History tablet thiamine HCl (vitamin B1) 100 mg 100 mg PO DAILY 03/04/22 03/04/22 Unknown History tablet Physical Exam Vital Signs: Vital Signs: Last Vital Signs Temp 99.4 F 03/05/22 04:15 Pulse 113 H 03/05/22 04:15 Resp 22 H 03/05/22 04:15 BP 119/82 03/05/22 04:15 Pulse Ox 92 03/05/22 04:15 O2 Del Method 03/05/22 04:15 O2 Flow Rate 3 03/05/22 04:15 BMI result Body Mass Index 26.2 Const: General: no acute distress, ill appearing and lethargic (arousable and responds appropriately to questions) Nutritional Appearance: overweight Orientation/consciousness: patient oriented x3 and lethargic (arousable and responds appropriately to questions) Limitations: no limitations HEENT: Head: Yes normal to inspection Ears: hearing grossly normal bilaterally Mouth: Normal oral and palatal mucosa present Eyes: Sclerae: sclerae normal Pupils: Equal, round and reactive pupils present Neck: Neck: Yes normal visual inspection Chest: Chest palpation & inspection: normal inspection of the chest Resp: Effort & Inspection: normal respiratory effort Auscultation: clear to auscultation bilaterally Cardio: Palpation: normal PMI Rate: regular rate Rhythm: regular rhythm Heart sounds: S1 normal heart sound present, S2 normal heart sound present and no murmurs GI: Palpation (GI): Soft to palpation, nontender and No hepatosplenomegaly present Auscultation: normal bowel sounds Rectal Exam - Male: Yes deferred Skin: General skin exam: no rashes or lesions noted and spider nevi Neuro: General: patient oriented x3, gait normal and moves all extremities Cranial nerves: Yes Equal, round and reactive pupils present Extrem: General: Yes pedal edema (1+ pitting edema) Psych: Appearance: grossly normal Mental Status: mental status grossly normal Results Labs CBC & Chem 7: 03/09/22 06:46 03/09/22 06:46 Labs: Short CBC 03/04/22 03/05/22 Range/Units 20:43 06:28 WBC 10.4 7.6 (4.8-10.8) X10*3/uL Hgb 8.8 L 8.0 L (14.0-18.0) g/dl Hct 26.4 L 24.5 L (42.0-52.0) % Plt Count 91 L 58 L D (160-400) X10*3/uL BMP 03/04/22 03/05/22 20:43 06:28 Sodium 136 137 Potassium 4.2 4.7 Chloride 102 107 Carbon Dioxide 22 22 BUN 21 H 19 H Creatinine 0.86 0.79 Calcium 9.3 8.2 L D Liver Function 03/04/22 Range/Units 20:43 Total Bilirubin 2.1 H (0.0-1.0) mg/dL AST 192 H (5-37) U/L ALT 44 H (0-40) U/L Alkaline Phosphatase 92 (39-117) U/L Albumin 3.0 L (3.5-5.0) g/dL Urine 03/05/22 Range/Units 04:18 Urine Color YELLOW Urine Appearance CLOUDY Urine pH 7.0 (5.0-8.0) Ur Specific Miles 1.020 (1.005-1.025) Urine Protein NEG (NEG-TRACE) MG/DL Urine Glucose (UA) NEG (NEG) MG/DL Assessment and Plan (1) Alcohol abuse with withdrawal: Status: Inactive (2) Esophageal varices: Status: Inactive (3) GI bleed: Status: Inactive (4) Guaiac + stool: Status: Inactive Plan 46 YM with hypertension and known hx of alcohol abuse complicated by liver disease and esophageal varices admitted with abdominal pain, nausea, poor p.o. intake and hematemesis.? Denies taking aspirin or NSAIDS or being on chronic anticoagulation. PT admits to drinking 15 nips of vodka daily for the past several years. Patient reported that he was also admitted [place] [facility] [place] ago with the same complaint found to have variceal bleed, he had EGD with banding at that time but left AMA.? Labs are significant for WBC count of 10.4, hemoglobin of 8.8, hematocrit 26.4 (when compared to a recent H&H from [facility], H&H stable), lipase of 98, UA negative, UDS positive for barbiturates and marijuana.? Stool occult blood positive Abdominal pelvic CT showed underlying liver disease/fibrosis and portal hypertension with recanalized umbilical vein.? Dilated IMV with large perirectal varices and moderate to large volume ascites.? Additional possible small paraesophageal varices. RECOMMENDATIONS: 1. Agree wiith CIWA protocol, IV PPI and IV octreotide infusion. 2. Follow H & H Q 8 hrly x 24 hrs and the twice daily if stable 3. Proceed with EGD today - procedure and potential complications were reviewed with the patient. 4. He needs alcohol rehab to help him stop drinking. Procedures Date of Service Date of Service: 03/05/22
[2022-03-05 08:14] LABS: Magnesium 1.7 mg/dL (1.6-2.6)
[2022-03-05] MEDS: Octreotide Acetate 500 MCG in 0.9 % Sodium Chloride 500 ML 50.1 MCG IVCONT ×2 (08:45→18:09)
[2022-03-05] MEDS: Thiamine HCL 100 MG TABLET PO (08:54)
[2022-03-05] MEDS: Multivitamin TABLET 1 TAB PO (08:54)
[2022-03-05] MEDS: lisinopriL 20 MG TABLET PO (08:54)
[2022-03-05] MEDS: Folic Acid 1 MG TABLET PO (08:54)
--- NOTE | 2022-03-05 10:22 | P.BOP_ITS ---
Brief Operative Note Date of Service: 03/05/22 Pre-op diagnosis: UGI bleed, hx of esophageal varices Post-op diagnosis: other (Esophageal varices, multiple esophageal ulcers related to recent banding and erosive esophagitis, portal gastropathy) Procedure: FLEXIBLE TRANSORAL UPPER GASTROINTESTINAL ENDOSCOPY WITH BIOPSIES Consent: Indications for the procedure and potential complications of bleeding, perforation, reaction to medications and missed diagnosis were discussed with the patient and informed consent was obtained. Instrument: Olympus GIF H 190 mid size upper endoscope Monitoring: Vital signs and clinical assessment, continuous EKG monitoring, Pulse oximetry, Carbon Dioxide monitoring and blood pressure monitoring were done throughout the procedure. Procedure: The patient was placed in the left lateral decubitis position and pre-procedure medications were administered and a bite block was placed. The endoscope was inserted into the mouth and advanced under direct vision to the third part of duodenum. A careful inspection was made as the upper endoscope was withdrawn including a retroflexed examination of the proximal stomach; Findings and interventions are described below. Findings: Larynx: Normal Esophagus: GE junction at 35 cms, hiatal hernia 35 to 38 cms. Grade 3 four column non-bleeding varices from 25 to 35 cms. Multiple ulcers covered with white exudates likely at the site of recent banding with supeimposed reflux esophagitis. Band ligation was not performed due to extensive ulcerations Stomach: Moderate portal gastropathy. Grade 2 flap valve and early gastric varices on retroflexed examination of the cardia. Duodenum: Normal bulb and descending duodenum Intervention: None Impression and Post Procedure Diagnosis: Endoscopy Findings: ESOPHAGUS: GE junction at 35 cms, hiatal hernia 35 to 38 cms. Grade 3 four column non-bleeding varices from 25 to 35 cms. Multiple ulcers covered with white exudates likely at the site of recent banding with supeimposed reflux esophagitis. Band ligation was not performed due to extensive ulcerations STOMACH: Moderate portal gastropathy. Grade 2 flap valve and early gastric varices on retroflexed examination of the cardia. No blood in the UGI tract during EGD Plan: Await pathology results Continue Octreotide infusion for 72 hrs. Start Nadolol 20 mg daily if H & H remains stable over the next 48 hrs. Omeprazole 20 mg twice daily for GERD. Repeat EGD in 3 - 4 months. Surgeon: Gustavo Dawn MD Anesthesia: MAC (Dr Sams) Was an Change Control Analyst used for this Procedure?: Yes Change Control Analyst: Miryam Stoll Estimated blood loss (mL): 0 Pathology: none sent Condition: stable Disposition: PACU
--- NOTE | 2022-03-05 10:24 | W.PM.OPN ---
Operative Note Operative Note Date of Service: 03/05/22 Narrative: Pre-op diagnosis: UGI bleed, hx of esophageal varices Post-op diagnosis:?other (Esophageal varices, multiple esophageal ulcers related to recent banding and erosive esophagitis, portal gastropathy) Procedure: FLEXIBLE TRANSORAL UPPER GASTROINTESTINAL ENDOSCOPY WITH BIOPSIES Consent:?Indications for the procedure and potential complications of bleeding, perforation, reaction to medications and missed diagnosis were discussed with the patient and informed consent was obtained. Instrument:?Olympus GIF H 190 mid size upper endoscope Monitoring: Vital signs and clinical assessment, continuous EKG monitoring, Pulse oximetry, Carbon Dioxide monitoring and blood pressure monitoring were done throughout the procedure. Procedure:?The patient was placed in the left lateral decubitis position and pre-procedure medications were administered and a bite block was placed. The endoscope was inserted into the mouth and advanced under direct vision to the third part of duodenum. A careful inspection was made as the upper endoscope was withdrawn including a retroflexed examination of the proximal stomach; Findings and interventions are described below. Findings: Larynx:? Normal Esophagus: GE junction at 35 cms, hiatal hernia 35 to 38 cms. Grade 3 four column non-bleeding varices from 25 to 35 cms. Multiple ulcers covered with white exudates likely at the site of recent banding with supeimposed reflux esophagitis. Band ligation was not performed due to extensive ulcerations Stomach: Moderate portal gastropathy. Grade 2 flap valve and early gastric varices on retroflexed examination of the cardia. Duodenum: Normal bulb and descending duodenum Intervention: None Impression and Post Procedure Diagnosis: Endoscopy Findings: ESOPHAGUS:? GE junction at 35 cms, hiatal hernia 35 to 38 cms. Grade 3 four column non-bleeding varices from 25 to 35 cms. Multiple ulcers covered with white exudates likely at the site of recent banding with supeimposed reflux esophagitis. Band ligation was not performed due to extensive ulcerations STOMACH: Moderate portal gastropathy. Grade 2 flap valve and early gastric varices on retroflexed examination of the cardia. No blood in the UGI tract during EGD Plan: Await pathology results Continue Octreotide infusion for 72 hrs. Start Nadolol 20 mg daily if H & H remains stable over the next 48 hrs. Omeprazole 20 mg twice daily for GERD. Repeat EGD in 3 - 4 months. Surgeon: Gustavo Dawn MD Anesthesia:?MAC (Dr Sams) Was an Straightedge Machine Operator Helper used for this Procedure?:?Yes Straightedge Machine Operator Helper:?Miryam Stoll Estimated blood loss (mL):?0 Pathology:?none sent Condition:?stable Disposition:?PACU
--- NOTE | 2022-03-05 10:40 | HO.ANESPROP2 ---
[facility] Active Problems Active Problems: All Active Problems (Updated 03/05/22 @ 06:09 by Corky Falcon MD) Alcohol abuse with withdrawal (Acute) Alcohol abuse (Acute) Esophageal varices (Acute) Hematemesis (Acute) GI bleed (Acute) Alcohol withdrawal syndrome (Acute) Vomiting (Acute) Guaiac + stool (Acute) Past Medical History Medical History Alcohol abuse Esophageal varices Hypertension Functional capacity: independent ambulation Family History Family History Father Cancer Family history of problems with anesthesia: No Surgical History Surgical History No pertinent past surgical history History of Problems with Anesthesia: No Social History Social History Alcohol intake: current Alcohol intake frequency: 3 or more drinks per day Patient Tobacco Use Status: Current everyday Tobacco user Tobacco use type: Cigarette Cigarette Packs Per Day: 1 Cigarettes Per Day: 20.0 Use of substances other than those prescribed or required for medical reasons: Yes Substance Use Type: Marijuana Are you DNR?: No Advance Directives: No Meds Allergies Allergy/AdvReac Type Severity Reaction Status Date / Time No Known Allergies Allergy Unverified 05/08/20 15:09 Active Medications: Current Medications Acetaminophen (Acetaminophen 325 Mg Tablet) 650 mg PO Q6H PRN PRN Reason: Pain, Mild (Pain Scale 1-3) Docusate Sodium (Docusate Sodium 100 Mg Capsule) 100 mg PO DAILY PRN PRN Reason: Constipation Folic Acid (Folic Acid 1 Mg Tablet) 1 mg PO DAILY [facility] Last Admin: 03/05/22 08:54 Dose: 1 mg Lactated Ringer's (Lr) 1,000 mls @ 100 mls/hr IVCONT .Q10H [facility] Last Admin: 03/04/22 23:10 Dose: 100 mls/hr Octreotide Acetate 500 mcg/ (Sodium Chloride) 501 mls @ 50.1 mls/hr IVCONT .Q10H [facility] Last Admin: 03/05/22 08:45 Dose: 50 mcg/hr, 50.1 mls/hr Ceftriaxone Sodium 1 gm/ (Sodium Chloride) 50 mls @ 100 mls/hr IV Q24H [facility] Lisinopril (Lisinopril 20 Mg Tablet) 20 mg PO DAILY [facility]; Protocol Last Admin: 03/05/22 08:54 Dose: 20 mg Multivitamins/Vitamin C (Multivitamin Tablet) 1 tab PO DAILY [facility] Last Admin: 03/05/22 08:54 Dose: 1 tab Nicotine (Nicotine 21 Mg Patch.Td24) 21 mg TRANSDERMA DAILY [facility] Last Admin: 03/05/22 00:17 Dose: 21 mg Ondansetron HCl (Ondansetron Hcl 4 Mg/2 Ml Vial) 4 mg IVPUSH Q8H PRN PRN Reason: Nausea and Vomiting Pantoprazole Sodium (Pantoprazole Sodium 40 Mg/10 Ml Vial) 40 mg IVPUSH BID@0630,1630 [facility] Last Admin: 03/05/22 06:07 Dose: 40 mg Pharmacy Consult (Consult Rx Perform Med Rec) 1 each MISCELLANE ONCE PRN PRN Reason: Consult order Pharmacy Consult (Consult Rx Etoh Phenob Im/Po) 1 each MISCELLANE ONCE PRN; Protocol PRN Reason: Consult order Phenobarbital (Phenobarbital 30 Mg Tablet) 60 mg PO BID [facility]; Protocol Stop: 03/07/22 09:01 Phenobarbital (Phenobarbital 30 Mg Tablet) 30 mg PO BID [facility]; Protocol Stop: 03/09/22 09:01 Phenobarbital (Phenobarbital 30 Mg Tablet) 30 mg PO BEDTIME [facility]; Protocol Stop: 03/10/22 21:01 Pyridoxine HCl (Pyridoxine Hcl (Vitamin B6) 50 Mg Tablet) 100 mg PO DAILY [facility] Sodium Chloride (0.9 % Sodium Chloride Flush 3 Ml Syringe) 3 ml IVFLUSH QSHIFT [facility] Last Admin: 03/05/22 09:26 Dose: Not Given Thiamine HCl (Thiamine Hcl 100 Mg Tablet) 100 mg PO DAILY [facility] Last Admin: 03/05/22 08:54 Dose: 100 mg Home Medications Medication Instructions Recorded Confirmed Last Taken Type folic acid 1 mg tablet 1 mg PO DAILY 03/04/22 03/04/22 Unknown History lisinopril 20 mg tablet 20 mg PO DAILY 03/04/22 03/04/22 Unknown History multivitamin 1 tab PO DAILY 03/04/22 03/04/22 Unknown History pyridoxine (vitamin B6) 100 mg 100 mg PO DAILY 03/04/22 03/04/22 Unknown History tablet thiamine HCl (vitamin B1) 100 mg 100 mg PO DAILY 03/04/22 03/04/22 Unknown History tablet Exam Exam Date and Time: March 05, 2022 1040 Height,Weight and Vital Signs: Height 5 ft 11 in Weight 85.5 kg Last Vital Signs Temp 98.4 F 03/05/22 09:50 Pulse 104 H 03/05/22 09:50 Resp 24 H 03/05/22 09:50 BP 117/81 03/05/22 09:50 Pulse Ox 97 03/05/22 09:50 O2 Del Method 03/05/22 09:50 O2 Flow Rate 2 03/05/22 09:50 Pertinent Lab Results Pertinent Lab Results: Laboratory Tests 03/04/22 03/04/22 03/04/22 20:43 20:43 20:43 WBC 10.4 RBC 2.60 L Hgb 8.8 L Hct 26.4 L MCV 101.5 H MCH 33.8 H MCHC 33.3 RDW 18.6 H Plt Count 91 L MPV 12.3 Immature Gran % (Auto) 0.4 Neut % (Auto) 72.9 Lymph % (Auto) 20.8 [place] % (Auto) 5.6 Eos % (Auto) 0.0 Baso % (Auto) 0.3 Lymph # (Auto) 2.2 [place] # (Auto) 0.6 Eos # (Auto) 0.0 Baso # (Auto) 0.0 Abs Immat Gran (auto) 0.04 H Absolute Neuts (auto) 7.6 Absolute Nucleated RBC 0.000 Nucleated RBC % (auto) 0.0 PT 17.4 H INR 1.5 H APTT 33.0 Sodium 136 Potassium 4.2 Chloride 102 Carbon Dioxide 22 Anion Gap 16 BUN 21 H Creatinine 0.86 Estim Creat Clear Calc 116.7 Estimated GFR > 60 Random Glucose 128 H Calcium 9.3 Magnesium Total Bilirubin 2.1 H AST 192 H ALT 44 H Alkaline Phosphatase 92 Total Protein 6.8 Albumin 3.0 L Lipase 98 H Urine Color Urine Appearance Urine pH Ur Specific [place] Urine Protein Urine Glucose (UA) Urine Ketones Urine Blood Urine Nitrite Ur Leukocyte Esterase Urine RBC Urine WBC Ur Squamous Epith Cells Amorphous Sediment Urine Bacteria Urine Mucus Stool Occult Blood Urine Opiates Screen Urine Fentanyl Screen Ur Barbiturates Screen Ur Phencyclidine Scrn Ur Amphetamines Screen U Benzodiazepines Scrn Urine Cocaine Screen U Marijuana (THC) Screen COVID-19 ([facility]) COVID-19 Clin Com Blood Type Antibody Screen 03/04/22 03/04/22 03/04/22 20:43 20:43 20:51 WBC RBC Hgb Hct MCV MCH MCHC RDW Plt Count MPV Immature Gran % (Auto) Neut % (Auto) Lymph % (Auto) [place] % (Auto) Eos % (Auto) Baso % (Auto) Lymph # (Auto) [place] # (Auto) Eos # (Auto) Baso # (Auto) Abs Immat Gran (auto) Absolute Neuts (auto) Absolute Nucleated RBC Nucleated RBC % (auto) PT INR APTT Sodium Potassium Chloride Carbon Dioxide Anion Gap BUN Creatinine Estim Creat Clear Calc Estimated GFR Random Glucose Calcium Magnesium Total Bilirubin AST ALT Alkaline Phosphatase Total Protein Albumin Lipase Urine Color Urine Appearance Urine pH Ur Specific [place] Urine Protein Urine Glucose (UA) Urine Ketones Urine Blood Urine Nitrite Ur Leukocyte Esterase Urine RBC Urine WBC Ur Squamous Epith Cells Amorphous Sediment Urine Bacteria Urine Mucus Stool Occult Blood POSITIVE Urine Opiates Screen Urine Fentanyl Screen Ur Barbiturates Screen Ur Phencyclidine Scrn Ur Amphetamines Screen U Benzodiazepines Scrn Urine Cocaine Screen U Marijuana (THC) Screen COVID-19 ([facility]) Negative COVID-19 Clin Com See Note Blood Type A Positive Antibody Screen NEGATIVE 03/05/22 03/05/22 03/05/22 04:18 04:18 06:28 WBC 7.6 RBC 2.37 L Hgb 8.0 L Hct 24.5 L MCV 103.4 H MCH 33.8 H MCHC 32.7 RDW 19.2 H Plt Count 58 L D MPV 11.6 Immature Gran % (Auto) 0.4 Neut % (Auto) 70.1 Lymph % (Auto) 23.7 [place] % (Auto) 5.0 Eos % (Auto) 0.4 Baso % (Auto) 0.4 Lymph # (Auto) 1.8 [place] # (Auto) 0.4 Eos # (Auto) 0.0 Baso # (Auto) 0.0 Abs Immat Gran (auto) 0.03 Absolute Neuts (auto) 5.3 Absolute Nucleated RBC 0.000 Nucleated RBC % (auto) 0.0 PT INR APTT Sodium Potassium Chloride Carbon Dioxide Anion Gap BUN Creatinine Estim Creat Clear Calc Estimated GFR Random Glucose Calcium Magnesium Total Bilirubin AST ALT Alkaline Phosphatase Total Protein Albumin Lipase Urine Color YELLOW Urine Appearance CLOUDY Urine pH 7.0 Ur Specific [place] 1.020 Urine Protein NEG Urine Glucose (UA) NEG Urine Ketones NEG Urine Blood NEG Urine Nitrite NEG Ur Leukocyte Esterase NEG Urine RBC 0 Urine WBC 0-2 Ur Squamous Epith Cells NONE Amorphous Sediment 3+ Urine Bacteria NONE Urine Mucus 1+ Stool Occult Blood Urine Opiates Screen Not Detected Urine Fentanyl Screen Not Detected Ur Barbiturates Screen POSITIVE H Ur Phencyclidine Scrn Not Detected Ur Amphetamines Screen Not Detected U Benzodiazepines Scrn Not Detected Urine Cocaine Screen Not Detected U Marijuana (THC) Screen POSITIVE H COVID-19 ([facility]) COVID-19 Clin Com Blood Type Antibody Screen 03/05/22 06:28 WBC RBC Hgb Hct MCV MCH MCHC RDW Plt Count MPV Immature Gran % (Auto) Neut % (Auto) Lymph % (Auto) [place] % (Auto) Eos % (Auto) Baso % (Auto) Lymph # (Auto) [place] # (Auto) Eos # (Auto) Baso # (Auto) Abs Immat Gran (auto) Absolute Neuts (auto) Absolute Nucleated RBC Nucleated RBC % (auto) PT INR APTT Sodium 137 Potassium 4.7 Chloride 107 Carbon Dioxide 22 Anion Gap 13 BUN 19 H Creatinine 0.79 Estim Creat Clear Calc 127.0 Estimated GFR > 60 Random Glucose 130 H Calcium 8.2 L D Magnesium 1.7 Total Bilirubin AST ALT Alkaline Phosphatase Total Protein Albumin Lipase Urine Color Urine Appearance Urine pH Ur Specific [place] Urine Protein Urine Glucose (UA) Urine Ketones Urine Blood Urine Nitrite Ur Leukocyte Esterase Urine RBC Urine WBC Ur Squamous Epith Cells Amorphous Sediment Urine Bacteria Urine Mucus Stool Occult Blood Urine Opiates Screen Urine Fentanyl Screen Ur Barbiturates Screen Ur Phencyclidine Scrn Ur Amphetamines Screen U Benzodiazepines Scrn Urine Cocaine Screen U Marijuana (THC) Screen COVID-19 ([facility]) COVID-19 Clin Com Blood Type Antibody Screen Airway Heart: RRR Lungs: CTA Assessment and Plan Final Anesthetic Review Family History of Problems with Anesthesia: No History of Problems with Anesthesia: No NPO: Yes ASA Class: III and Emergency Final Preanesthetic Review: No Changes in Pt Med Stat, Meds/Allgs Chart Reviewed, Consent Obtained/Reviewed and Anes Risks/Benef Reviewed Patient Risk: Low Procedure Risk: Low Anesthetic Plan Anesthetic Plan: MAC: Disposition: Standard PACU
--- NOTE | 2022-03-05 10:48 | HO.ANESPROP2 ---
[facility] Active Problems Active Problems: All Active Problems (Updated 03/05/22 @ 06:09 by Corky Falcon MD) Alcohol abuse with withdrawal (Acute) Alcohol abuse (Acute) Esophageal varices (Acute) Hematemesis (Acute) GI bleed (Acute) Alcohol withdrawal syndrome (Acute) Vomiting (Acute) Guaiac + stool (Acute) Past Medical History Medical History Alcohol abuse Esophageal varices Hypertension Functional capacity: independent ambulation Family History Family History Father Cancer Family history of problems with anesthesia: No Surgical History Surgical History No pertinent past surgical history History of Problems with Anesthesia: No Social History Social History Alcohol intake: current Alcohol intake frequency: 3 or more drinks per day Patient Tobacco Use Status: Current everyday Tobacco user Tobacco use type: Cigarette Cigarette Packs Per Day: 1 Cigarettes Per Day: 20.0 Use of substances other than those prescribed or required for medical reasons: Yes Substance Use Type: Marijuana Are you DNR?: No Advance Directives: No Meds Allergies Allergy/AdvReac Type Severity Reaction Status Date / Time No Known Allergies Allergy Unverified 05/08/20 15:09 Active Medications: Current Medications Acetaminophen (Acetaminophen 325 Mg Tablet) 650 mg PO Q6H PRN PRN Reason: Pain, Mild (Pain Scale 1-3) Docusate Sodium (Docusate Sodium 100 Mg Capsule) 100 mg PO DAILY PRN PRN Reason: Constipation Folic Acid (Folic Acid 1 Mg Tablet) 1 mg PO DAILY [facility] Last Admin: 03/05/22 08:54 Dose: 1 mg Lactated Ringer's (Lr) 1,000 mls @ 100 mls/hr IVCONT .Q10H [facility] Last Admin: 03/04/22 23:10 Dose: 100 mls/hr Octreotide Acetate 500 mcg/ (Sodium Chloride) 501 mls @ 50.1 mls/hr IVCONT .Q10H [facility] Last Admin: 03/05/22 08:45 Dose: 50 mcg/hr, 50.1 mls/hr Ceftriaxone Sodium 1 gm/ (Sodium Chloride) 50 mls @ 100 mls/hr IV Q24H [facility] Lisinopril (Lisinopril 20 Mg Tablet) 20 mg PO DAILY [facility]; Protocol Last Admin: 03/05/22 08:54 Dose: 20 mg Multivitamins/Vitamin C (Multivitamin Tablet) 1 tab PO DAILY [facility] Last Admin: 03/05/22 08:54 Dose: 1 tab Nicotine (Nicotine 21 Mg Patch.Td24) 21 mg TRANSDERMA DAILY [facility] Last Admin: 03/05/22 00:17 Dose: 21 mg Ondansetron HCl (Ondansetron Hcl 4 Mg/2 Ml Vial) 4 mg IVPUSH Q8H PRN PRN Reason: Nausea and Vomiting Pantoprazole Sodium (Pantoprazole Sodium 40 Mg/10 Ml Vial) 40 mg IVPUSH BID@0630,1630 [facility] Last Admin: 03/05/22 06:07 Dose: 40 mg Pharmacy Consult (Consult Rx Perform Med Rec) 1 each MISCELLANE ONCE PRN PRN Reason: Consult order Pharmacy Consult (Consult Rx Etoh Phenob Im/Po) 1 each MISCELLANE ONCE PRN; Protocol PRN Reason: Consult order Phenobarbital (Phenobarbital 30 Mg Tablet) 60 mg PO BID [facility]; Protocol Stop: 03/07/22 09:01 Phenobarbital (Phenobarbital 30 Mg Tablet) 30 mg PO BID [facility]; Protocol Stop: 03/09/22 09:01 Phenobarbital (Phenobarbital 30 Mg Tablet) 30 mg PO BEDTIME [facility]; Protocol Stop: 03/10/22 21:01 Pyridoxine HCl (Pyridoxine Hcl (Vitamin B6) 50 Mg Tablet) 100 mg PO DAILY [facility] Sodium Chloride (0.9 % Sodium Chloride Flush 3 Ml Syringe) 3 ml IVFLUSH QSHIFT [facility] Last Admin: 03/05/22 09:26 Dose: Not Given Thiamine HCl (Thiamine Hcl 100 Mg Tablet) 100 mg PO DAILY [facility] Last Admin: 03/05/22 08:54 Dose: 100 mg Home Medications Medication Instructions Recorded Confirmed Last Taken Type folic acid 1 mg tablet 1 mg PO DAILY 03/04/22 03/04/22 Unknown History lisinopril 20 mg tablet 20 mg PO DAILY 03/04/22 03/04/22 Unknown History multivitamin 1 tab PO DAILY 03/04/22 03/04/22 Unknown History pyridoxine (vitamin B6) 100 mg 100 mg PO DAILY 03/04/22 03/04/22 Unknown History tablet thiamine HCl (vitamin B1) 100 mg 100 mg PO DAILY 03/04/22 03/04/22 Unknown History tablet Exam Exam Date and Time: March 05, 2022 1048 Height,Weight and Vital Signs: Height 5 ft 11 in Weight 85.5 kg Last Vital Signs Temp 98.4 F 03/05/22 09:50 Pulse 104 H 03/05/22 09:50 Resp 24 H 03/05/22 09:50 BP 117/81 03/05/22 09:50 Pulse Ox 97 03/05/22 09:50 O2 Del Method 03/05/22 09:50 O2 Flow Rate 2 03/05/22 09:50 Pertinent Lab Results Pertinent Lab Results: Laboratory Tests 03/04/22 03/04/22 03/04/22 20:43 20:43 20:43 WBC 10.4 RBC 2.60 L Hgb 8.8 L Hct 26.4 L MCV 101.5 H MCH 33.8 H MCHC 33.3 RDW 18.6 H Plt Count 91 L MPV 12.3 Immature Gran % (Auto) 0.4 Neut % (Auto) 72.9 Lymph % (Auto) 20.8 [place] % (Auto) 5.6 Eos % (Auto) 0.0 Baso % (Auto) 0.3 Lymph # (Auto) 2.2 [place] # (Auto) 0.6 Eos # (Auto) 0.0 Baso # (Auto) 0.0 Abs Immat Gran (auto) 0.04 H Absolute Neuts (auto) 7.6 Absolute Nucleated RBC 0.000 Nucleated RBC % (auto) 0.0 PT 17.4 H INR 1.5 H APTT 33.0 Sodium 136 Potassium 4.2 Chloride 102 Carbon Dioxide 22 Anion Gap 16 BUN 21 H Creatinine 0.86 Estim Creat Clear Calc 116.7 Estimated GFR > 60 Random Glucose 128 H Calcium 9.3 Magnesium Total Bilirubin 2.1 H AST 192 H ALT 44 H Alkaline Phosphatase 92 Total Protein 6.8 Albumin 3.0 L Lipase 98 H Urine Color Urine Appearance Urine pH Ur Specific [place] Urine Protein Urine Glucose (UA) Urine Ketones Urine Blood Urine Nitrite Ur Leukocyte Esterase Urine RBC Urine WBC Ur Squamous Epith Cells Amorphous Sediment Urine Bacteria Urine Mucus Stool Occult Blood Urine Opiates Screen Urine Fentanyl Screen Ur Barbiturates Screen Ur Phencyclidine Scrn Ur Amphetamines Screen U Benzodiazepines Scrn Urine Cocaine Screen U Marijuana (THC) Screen COVID-19 ([facility]) COVID-19 Clin Com Blood Type Antibody Screen 03/04/22 03/04/22 03/04/22 20:43 20:43 20:51 WBC RBC Hgb Hct MCV MCH MCHC RDW Plt Count MPV Immature Gran % (Auto) Neut % (Auto) Lymph % (Auto) [place] % (Auto) Eos % (Auto) Baso % (Auto) Lymph # (Auto) [place] # (Auto) Eos # (Auto) Baso # (Auto) Abs Immat Gran (auto) Absolute Neuts (auto) Absolute Nucleated RBC Nucleated RBC % (auto) PT INR APTT Sodium Potassium Chloride Carbon Dioxide Anion Gap BUN Creatinine Estim Creat Clear Calc Estimated GFR Random Glucose Calcium Magnesium Total Bilirubin AST ALT Alkaline Phosphatase Total Protein Albumin Lipase Urine Color Urine Appearance Urine pH Ur Specific [place] Urine Protein Urine Glucose (UA) Urine Ketones Urine Blood Urine Nitrite Ur Leukocyte Esterase Urine RBC Urine WBC Ur Squamous Epith Cells Amorphous Sediment Urine Bacteria Urine Mucus Stool Occult Blood POSITIVE Urine Opiates Screen Urine Fentanyl Screen Ur Barbiturates Screen Ur Phencyclidine Scrn Ur Amphetamines Screen U Benzodiazepines Scrn Urine Cocaine Screen U Marijuana (THC) Screen COVID-19 ([facility]) Negative COVID-19 Clin Com See Note Blood Type A Positive Antibody Screen NEGATIVE 03/05/22 03/05/22 03/05/22 04:18 04:18 06:28 WBC 7.6 RBC 2.37 L Hgb 8.0 L Hct 24.5 L MCV 103.4 H MCH 33.8 H MCHC 32.7 RDW 19.2 H Plt Count 58 L D MPV 11.6 Immature Gran % (Auto) 0.4 Neut % (Auto) 70.1 Lymph % (Auto) 23.7 [place] % (Auto) 5.0 Eos % (Auto) 0.4 Baso % (Auto) 0.4 Lymph # (Auto) 1.8 [place] # (Auto) 0.4 Eos # (Auto) 0.0 Baso # (Auto) 0.0 Abs Immat Gran (auto) 0.03 Absolute Neuts (auto) 5.3 Absolute Nucleated RBC 0.000 Nucleated RBC % (auto) 0.0 PT INR APTT Sodium Potassium Chloride Carbon Dioxide Anion Gap BUN Creatinine Estim Creat Clear Calc Estimated GFR Random Glucose Calcium Magnesium Total Bilirubin AST ALT Alkaline Phosphatase Total Protein Albumin Lipase Urine Color YELLOW Urine Appearance CLOUDY Urine pH 7.0 Ur Specific [place] 1.020 Urine Protein NEG Urine Glucose (UA) NEG Urine Ketones NEG Urine Blood NEG Urine Nitrite NEG Ur Leukocyte Esterase NEG Urine RBC 0 Urine WBC 0-2 Ur Squamous Epith Cells NONE Amorphous Sediment 3+ Urine Bacteria NONE Urine Mucus 1+ Stool Occult Blood Urine Opiates Screen Not Detected Urine Fentanyl Screen Not Detected Ur Barbiturates Screen POSITIVE H Ur Phencyclidine Scrn Not Detected Ur Amphetamines Screen Not Detected U Benzodiazepines Scrn Not Detected Urine Cocaine Screen Not Detected U Marijuana (THC) Screen POSITIVE H COVID-19 ([facility]) COVID-19 Clin Com Blood Type Antibody Screen 03/05/22 06:28 WBC RBC Hgb Hct MCV MCH MCHC RDW Plt Count MPV Immature Gran % (Auto) Neut % (Auto) Lymph % (Auto) [place] % (Auto) Eos % (Auto) Baso % (Auto) Lymph # (Auto) [place] # (Auto) Eos # (Auto) Baso # (Auto) Abs Immat Gran (auto) Absolute Neuts (auto) Absolute Nucleated RBC Nucleated RBC % (auto) PT INR APTT Sodium 137 Potassium 4.7 Chloride 107 Carbon Dioxide 22 Anion Gap 13 BUN 19 H Creatinine 0.79 Estim Creat Clear Calc 127.0 Estimated GFR > 60 Random Glucose 130 H Calcium 8.2 L D Magnesium 1.7 Total Bilirubin AST ALT Alkaline Phosphatase Total Protein Albumin Lipase Urine Color Urine Appearance Urine pH Ur Specific [place] Urine Protein Urine Glucose (UA) Urine Ketones Urine Blood Urine Nitrite Ur Leukocyte Esterase Urine RBC Urine WBC Ur Squamous Epith Cells Amorphous Sediment Urine Bacteria Urine Mucus Stool Occult Blood Urine Opiates Screen Urine Fentanyl Screen Ur Barbiturates Screen Ur Phencyclidine Scrn Ur Amphetamines Screen U Benzodiazepines Scrn Urine Cocaine Screen U Marijuana (THC) Screen COVID-19 ([facility]) COVID-19 Clin Com Blood Type Antibody Screen Airway Heart: RRR Lungs: CTA Assessment and Plan Final Anesthetic Review Family History of Problems with Anesthesia: No History of Problems with Anesthesia: No ASA Class: III and Emergency Final Preanesthetic Review: No Changes in Pt Med Stat, Meds/Allgs Chart Reviewed, Consent Obtained/Reviewed and Anes Risks/Benef Reviewed Patient Risk: Low Anesthetic Plan Anesthetic Plan: MAC: Disposition: Standard PACU and Inp. Admit - [facility]
--- NOTE | 2022-03-05 11:21 | HO.POSTANES ---
Post Anesthesia Evaluation Post Anesthesia Evaluation Vital Signs: Vital Signs Temp Pulse Resp BP Pulse Ox O2 Del Method O2 Flow Rate 03/05/22 11:18 98.5 F 82 18 93/57 L 97 Room Air 2 03/05/22 11:14 98.5 F 58 16 136/64 98 Room Air 03/05/22 11:03 97 18 90/60 95 Nasal Cannula 2 03/05/22 10:48 98.8 F 91 18 80/46 L 97 Nasal Cannula 2 03/05/22 09:50 98.4 F 104 H 24 H 117/81 97 Nasal Cannula 2 03/05/22 07:52 98.8 F 96 17 104/74 96 Nasal Cannula 2 03/05/22 04:15 99.4 F 113 H 22 H 119/82 92 Nasal Cannula 3 03/05/22 01:04 113 H 113/81 97 Nasal Cannula 2 03/05/22 00:20 115 H 15 108/77 95 Nasal Cannula 2 Anesthesia: Monitored Mental Status: Awake Pain Control: Satisfactory Nausea/Vomiting: None Hydration: Adequate Anesthesia-Related Issues: No Anes. Related Issues
[2022-03-05] MEDS: Pyridoxine HCl (Vitamin B6) 50 MG TABLET 100 MG PO (11:43)
[2022-03-05] MEDS: cefTRIAXone sodium 1 GM in 0.9 % Sodium Chloride 50 ML IV (11:44)
--- NOTE | 2022-03-05 12:00 | P.PNIM_ITS ---
Subjective Subjective Date of Service: 03/05/22 Interval History: Tremulous Epigastric discomfort Hematochezia resolved Had EGD this AM Review of Systems Review of Systems: Yes all other systems are reviewed and are negative Physical Exam Vital Signs: Vital Signs: Last Vital Signs Temp 98.5 F 03/05/22 11:18 Pulse 86 03/05/22 11:40 Resp 20 03/05/22 11:40 BP 109/79 03/05/22 11:50 Pulse Ox 100 03/05/22 11:40 O2 Del Method 03/05/22 11:40 O2 Flow Rate 2 03/05/22 11:40 BMI result Body Mass Index 26.2 Gen: tremulous HEENT: sclera anicteric, moist mucus membranes Neck: supple Lungs: clear to auscultation bilaterally Heart: tachycardic no murmurs Abd: soft, non-tender, distended Ext: no edema Skin: warm/well-perfused Neuro: alert and oriented x3, no focal findings Psych: appropriate affect Objective Data Active Medications Acetaminophen (Acetaminophen 325 Mg Tablet) 650 mg PO Q6H PRN PRN Reason: Pain, Mild (Pain Scale 1-3) Docusate Sodium (Docusate Sodium 100 Mg Capsule) 100 mg PO DAILY PRN PRN Reason: Constipation Folic Acid (Folic Acid 1 Mg Tablet) 1 mg PO DAILY [facility] Last Admin: 03/05/22 08:54 Dose: 1 mg Documented By: JORGE ALBERTO Lactated Ringer's (Lr) 1,000 mls @ 100 mls/hr IVCONT .Q10H [facility] Last Admin: 03/04/22 23:10 Dose: 100 mls/hr Documented By: RIGO Octreotide Acetate 500 mcg/ (Sodium Chloride) 501 mls @ 50.1 mls/hr IVCONT .Q10H [facility] Last Admin: 03/05/22 08:45 Dose: 50 mcg/hr, 50.1 mls/hr Documented By: JORGE ALBERTO Ceftriaxone Sodium 1 gm/ (Sodium Chloride) 50 mls @ 100 mls/hr IV Q24H [facility] Last Admin: 03/05/22 11:44 Dose: 100 mls/hr Documented By: CARI Lisinopril (Lisinopril 20 Mg Tablet) 20 mg PO DAILY [facility]; Protocol Last Admin: 03/05/22 08:54 Dose: 20 mg Documented By: JORGE ALBERTO Multivitamins/Vitamin C (Multivitamin Tablet) 1 tab PO DAILY [facility] Last Admin: 03/05/22 08:54 Dose: 1 tab Documented By: JORGE ALBERTO Nicotine (Nicotine 21 Mg Patch.Td24) 21 mg TRANSDERMA DAILY [facility] Last Admin: 03/05/22 00:17 Dose: 21 mg Documented By: LONNIE Ondansetron HCl (Ondansetron Hcl 4 Mg/2 Ml Vial) 4 mg IVPUSH Q8H PRN PRN Reason: Nausea and Vomiting Pantoprazole Sodium (Pantoprazole Sodium 40 Mg/10 Ml Vial) 40 mg IVPUSH BID@0630,1630 [facility] Last Admin: 03/05/22 06:07 Dose: 40 mg Documented By: LONNIE Pharmacy Consult (Consult Rx Perform Med Rec) 1 each MISCELLANE ONCE PRN PRN Reason: Consult order Pharmacy Consult (Consult Rx Etoh Phenob Im/Po) 1 each MISCELLANE ONCE PRN; Protocol PRN Reason: Consult order Phenobarbital (Phenobarbital 30 Mg Tablet) 60 mg PO BID [facility]; Protocol Stop: 03/07/22 09:01 Phenobarbital (Phenobarbital 30 Mg Tablet) 30 mg PO BID [facility]; Protocol Stop: 03/09/22 09:01 Phenobarbital (Phenobarbital 30 Mg Tablet) 30 mg PO BEDTIME [facility]; Protocol Stop: 03/10/22 21:01 Pyridoxine HCl (Pyridoxine Hcl (Vitamin B6) 50 Mg Tablet) 100 mg PO DAILY [facility] Last Admin: 03/05/22 11:43 Dose: 100 mg Documented By: CARI Sodium Chloride (0.9 % Sodium Chloride Flush 3 Ml Syringe) [address] [facility] Last Admin: 03/05/22 09:26 Dose: Not Given Documented By: JORGE ALBERTO Non-Admin Reason: IV Running Thiamine HCl (Thiamine Hcl 100 Mg Tablet) 100 mg PO DAILY [facility] Last Admin: 03/05/22 08:54 Dose: 100 mg Documented By: JORGE ALBERTO Labs CBC & Chem 7: 03/05/22 06:28 03/05/22 06:28 Labs: Laboratory Results - last 24 hr 03/04/22 03/04/22 03/04/22 20:43 20:43 20:43 MCV 101.5 H MCH 33.8 H MCHC 33.3 RDW 18.6 H Plt Count 91 L MPV 12.3 Immature Gran % (Auto) 0.4 Neut % (Auto) 72.9 Lymph % (Auto) 20.8 Butler % (Auto) 5.6 Eos % (Auto) 0.0 Baso % (Auto) 0.3 Lymph # (Auto) 2.2 Butler # (Auto) 0.6 Eos # (Auto) 0.0 Baso # (Auto) 0.0 Abs Immat Gran (auto) 0.04 H Absolute Neuts (auto) 7.6 Absolute Nucleated RBC 0.000 Nucleated RBC % (auto) 0.0 PT 17.4 H INR 1.5 H APTT 33.0 Anion Gap 16 Estim Creat Clear Calc 116.7 Estimated GFR > 60 Random Glucose 128 H Calcium 9.3 Magnesium Total Bilirubin 2.1 H AST 192 H ALT 44 H Alkaline Phosphatase 92 Total Protein 6.8 Albumin 3.0 L Lipase 98 H Urine Color Urine Appearance Urine pH Ur Specific Fisk Urine Protein Urine Glucose (UA) Urine Ketones Urine Blood Urine Nitrite Ur Leukocyte Esterase Urine RBC Urine WBC Ur Squamous Epith Cells Amorphous Sediment Urine Bacteria Urine Mucus Stool Occult Blood Urine Opiates Screen Urine Fentanyl Screen Ur Barbiturates Screen Ur Phencyclidine Scrn Ur Amphetamines Screen U Benzodiazepines Scrn Urine Cocaine Screen U Marijuana (THC) Screen COVID-19 ([facility]) COVID-19 Clin Com Blood Type Antibody Screen 03/04/22 03/04/22 03/04/22 20:43 20:43 20:51 MCV MCH MCHC RDW Plt Count MPV Immature Gran % (Auto) Neut % (Auto) Lymph % (Auto) Butler % (Auto) Eos % (Auto) Baso % (Auto) Lymph # (Auto) Butler # (Auto) Eos # (Auto) Baso # (Auto) Abs Immat Gran (auto) Absolute Neuts (auto) Absolute Nucleated RBC Nucleated RBC % (auto) PT INR APTT Anion Gap Estim Creat Clear Calc Estimated GFR Random Glucose Calcium Magnesium Total Bilirubin AST ALT Alkaline Phosphatase Total Protein Albumin Lipase Urine Color Urine Appearance Urine pH Ur Specific Fisk Urine Protein Urine Glucose (UA) Urine Ketones Urine Blood Urine Nitrite Ur Leukocyte Esterase Urine RBC Urine WBC Ur Squamous Epith Cells Amorphous Sediment Urine Bacteria Urine Mucus Stool Occult Blood POSITIVE Urine Opiates Screen Urine Fentanyl Screen Ur Barbiturates Screen Ur Phencyclidine Scrn Ur Amphetamines Screen U Benzodiazepines Scrn Urine Cocaine Screen U Marijuana (THC) Screen COVID-19 ([facility]) Negative COVID-19 Clin Com See Note Blood Type A Positive Antibody Screen NEGATIVE 03/05/22 03/05/22 03/05/22 04:18 04:18 06:28 MCV 103.4 H MCH 33.8 H MCHC 32.7 RDW 19.2 H Plt Count 58 L D MPV 11.6 Immature Gran % (Auto) 0.4 Neut % (Auto) 70.1 Lymph % (Auto) 23.7 Butler % (Auto) 5.0 Eos % (Auto) 0.4 Baso % (Auto) 0.4 Lymph # (Auto) 1.8 Butler # (Auto) 0.4 Eos # (Auto) 0.0 Baso # (Auto) 0.0 Abs Immat Gran (auto) 0.03 Absolute Neuts (auto) 5.3 Absolute Nucleated RBC 0.000 Nucleated RBC % (auto) 0.0 PT INR APTT Anion Gap Estim Creat Clear Calc Estimated GFR Random Glucose Calcium Magnesium Total Bilirubin AST ALT Alkaline Phosphatase Total Protein Albumin Lipase Urine Color YELLOW Urine Appearance CLOUDY Urine pH 7.0 Ur Specific Fisk 1.020 Urine Protein NEG Urine Glucose (UA) NEG Urine Ketones NEG Urine Blood NEG Urine Nitrite NEG Ur Leukocyte Esterase NEG Urine RBC 0 Urine WBC 0-2 Ur Squamous Epith Cells NONE Amorphous Sediment 3+ Urine Bacteria NONE Urine Mucus 1+ Stool Occult Blood Urine Opiates Screen Not Detected Urine Fentanyl Screen Not Detected Ur Barbiturates Screen POSITIVE H Ur Phencyclidine Scrn Not Detected Ur Amphetamines Screen Not Detected U Benzodiazepines Scrn Not Detected Urine Cocaine Screen Not Detected U Marijuana (THC) Screen POSITIVE H COVID-19 ([facility]) COVID-19 Clin Com Blood Type Antibody Screen 03/05/22 06:28 MCV MCH MCHC RDW Plt Count MPV Immature Gran % (Auto) Neut % (Auto) Lymph % (Auto) Butler % (Auto) Eos % (Auto) Baso % (Auto) Lymph # (Auto) Butler # (Auto) Eos # (Auto) Baso # (Auto) Abs Immat Gran (auto) Absolute Neuts (auto) Absolute Nucleated RBC Nucleated RBC % (auto) PT INR APTT Anion Gap 13 Estim Creat Clear Calc 127.0 Estimated GFR > 60 Random Glucose 130 H Calcium 8.2 L D Magnesium 1.7 Total Bilirubin AST ALT Alkaline Phosphatase Total Protein Albumin Lipase Urine Color Urine Appearance Urine pH Ur Specific Fisk Urine Protein Urine Glucose (UA) Urine Ketones Urine Blood Urine Nitrite Ur Leukocyte Esterase Urine RBC Urine WBC Ur Squamous Epith Cells Amorphous Sediment Urine Bacteria Urine Mucus Stool Occult Blood Urine Opiates Screen Urine Fentanyl Screen Ur Barbiturates Screen Ur Phencyclidine Scrn Ur Amphetamines Screen U Benzodiazepines Scrn Urine Cocaine Screen U Marijuana (THC) Screen COVID-19 ([facility]) COVID-19 Clin Com Blood Type Antibody Screen Assessment and Plan (1) Alcohol abuse with withdrawal: Status: Acute (2) Alcohol abuse: Status: Acute (3) Esophageal varices: Status: Acute (4) Hematemesis: Status: Acute Plan hospital d#2 46yo M with decompensated EtOH cirrhosis, recent acute variceal hemorrhage, admitted with hematemesis and EtOH withdrawal # UGIB with acute blood loss anemia # esophageal varices # portal gastropathy - EGD down today showing: ESOPHAGUS:? GE junction at 35 cms, hiatal hernia 35 to 38 cms. Grade 3 four column non-bleeding varices from 25 to 35 cms. Multiple ulcers covered with white exudates likely at the site of recent banding with supeimposed reflux esophagitis. Band ligation was not performed due to extensive ulcerations STOMACH: Moderate portal gastropathy. Grade 2 flap valve and early gastric varices on retroflexed examination of the cardia. No blood in the UGI tract during EGD. - continue octreotide gtt x 72 hr, start nadolol in 48 hr if H+H stable - IV PPI - ceftriaxone for SBP prophylaxis # EtOH withdrawal - phenobarbital taper # coagulopathy # thrombocytopenia - due to cirrhosis; monitor # AUD - B-vitamins - Addiction Medicine + Care Team consults - sobriety counseled # HTN - lisinopril # VTE ppx: SCDs In my clinical judgment, the patient requires continued hospitalization for the following reasons: UGIB, IV octreotide, inpt mgmt of EtOH withdrawal Quality Stroke Does the patient have a stroke diagnosis?: No VTE Prior VTE?: No VTE Risk Level:: Medical - moderate - high VTE Device Contraindication: N/A - Device Ordered VTE Drug Contraindication: Treatment Not Indicated
[2022-03-05] MEDS: Lactated Ringers 1,000 ML 100 ML IVCONT ×2 (13:38→23:29)
[2022-03-05] MEDS: Albumin Human 25 % 100 ML IV (15:25)
--- NOTE | 2022-03-05 15:38 | PC.NURSE ---
Assumed care of patient AT 3PM. Received report from Shara BORDEN. Called IR patient has 2 iv's and albumin is running.
--- NOTE | 2022-03-05 16:04 | PC.NURSE ---
Patient taken to IR will await return.
--- NOTE | 2022-03-05 16:36 | PC.NURSE ---
Patient came back from IR now.
[2022-03-05] MEDS: Lidocaine HCl 1 % MPF 5 ML VIAL SUBCUT (16:48)
[2022-03-05 17:49] LABS: MN% 78.2 %; PMN% 21.8 %; WBC Peritoneal Fluid 0.105 X10*3/uL
[2022-03-05 17:54] LABS: RBC Peritoneal Fluid < 0.002 X10*6/uL
[2022-03-05 18:13] LABS: BF Shift QC OK YES; Lymphocyte Peritoneal Fl 3 %; Monocytes Peritoneal Fl 69 %; Neutrophils Peritoneal Fluid 1 %; Other Peritioneal Fl 27 %
[2022-03-05] MEDS: PHENobarbitaL 30 MG TABLET 60 MG PO (20:43)
[2022-03-05] MEDS: Acetaminophen 325 MG TABLET 650 MG PO (20:46)
[2022-03-05] MEDS: oxyCODONE HCl Immed Release 5 MG TABLET PO (23:28)
[2022-03-06] VITALS (12 sets, daily range): BP systolic 92–116; BP diastolic 56–76; PULSE 72–87; RESP 16–20; TEMP 36.6–37.2; O2SAT 92–100; BMI 26.7
[2022-03-06] MEDS: Octreotide Acetate 500 MCG in 0.9 % Sodium Chloride 500 ML 50.1 MCG IVCONT ×3 (02:53→22:48)
[2022-03-06] MEDS: Pantoprazole Sodium 40 MG/10 ML VIAL IVPUSH ×2 (05:51→17:57)
[2022-03-06 06:07] LABS: Mean Corpuscular HGB Conc 32.2 g/dl (31.0-36.0); Mean Corpuscular Volume 105.9 fL (80.0-98.0); Mean Platelet Volume 12.4 fL (9.4-12.4); Red Blood Count 1.88 X10*6/uL (4.60-5.80); Red Cell Distribution Width 18.2 % (11.0-16.0); White Blood Count 4.1 X10*3/uL (4.8-10.8)
[2022-03-06 06:09] LABS: Platelet Count 39 X10*3/uL (160-400)
[2022-03-06 06:14] LABS: Hematocrit 19.9 % (42.0-52.0); Hemoglobin 6.4 g/dl (14.0-18.0)
[2022-03-06 06:15] LABS: INTERNATIONAL NORM RATIO 1.6 (0.9-1.1); Prothrombin Time 18.5 SEC (10.0-13.1)
--- NOTE | 2022-03-06 06:15 | MHC.PIE ---
p; h&h 6.4 19.9 i; dr rome notified e; will cont to monitor
--- NOTE | 2022-03-06 06:15 | PM.EVENT ---
Event Note Date of Service: 03/06/22 Event Note: CBC shows hemoglobin of 6.4 and hematocrit 19.9 this morning, will transfuse 1 unit of PRBC.
[2022-03-06 06:31] LABS: Alanine Aminotransferase 24 U/L (0-40); Albumin Level 2.2 g/dL (3.5-5.0); Alkaline Phosphatase 54 U/L (39-117); Anion Gap 8 (12-20); Aspartate Amino Transferase 125 U/L (5-37); Bilirubin Total 1.7 mg/dL (0.0-1.0); Blood Urea Nitrogen 16 mg/dL (9-16); Calcium 7.2 mg/dL (8.4-10.2); Carbon Dioxide 23 mmol/L (22-29); Chloride 106 mmol/L (96-108); Creatinine Clr Calc Pharmacy 133.8; Estimated Glomerular Filt Rate > 60; Glucose Random 83 mg/dL (60-115); Magnesium 1.6 mg/dL (1.6-2.6); Sodium 133 mmol/L (135-145); Total Protein 4.6 g/dL (6.5-8.0)
--- NOTE | 2022-03-06 10:22 | HO.PM.IMPN ---
Subjective Subjective Date of Service: 03/06/22 Interval History: EGD done yesterday, results below paracentesis done yesterday, 3.3L fluid removed EtOH withdrawal symptoms controlled no abd pain no N/V/hematochezia/melena Hb 6.4, transfusing 2u pRBCs Review of Systems Review of Systems: Yes all other systems are reviewed and are negative Physical Exam Vital Signs: Vital Signs: Last Vital Signs Temp 98.4 F 03/06/22 07:24 Pulse 81 03/06/22 07:24 Resp 16 03/06/22 07:24 BP 98/62 03/06/22 07:24 Pulse Ox 93 03/06/22 07:24 O2 Del Method 03/06/22 07:24 O2 Flow Rate 3 03/06/22 03:55 BMI result Body Mass Index 26.7 Gen: NAD HEENT: sclera anicteric, moist mucus membranes Neck: supple Lungs: clear to auscultation bilaterally Heart: no m/r/g Abd: soft, non-tender, distended, paracentesis site C/D/I Ext: no edema Skin: warm/well-perfused Neuro: alert and oriented x3, no focal findings, no asterixis or tremor Psych: appropriate affect Objective Data Active Medications Acetaminophen (Acetaminophen 325 Mg Tablet) 650 mg PO Q6H PRN PRN Reason: Pain, Mild (Pain Scale 1-3) Last Admin: 03/05/22 20:46 Dose: 650 mg Documented By: JOSE LUIS Docusate Sodium (Docusate Sodium 100 Mg Capsule) 100 mg PO DAILY PRN PRN Reason: Constipation Folic Acid (Folic Acid 1 Mg Tablet) 1 mg PO DAILY [facility] Last Admin: 03/05/22 08:54 Dose: 1 mg Documented By: JORGE ALBERTO Octreotide Acetate 500 mcg/ (Sodium Chloride) 501 mls @ 50.1 mls/hr IVCONT .Q10H [facility] Last Admin: 03/06/22 02:53 Dose: 50 mcg/hr, 50.1 mls/hr Documented By: SOUMYA Ceftriaxone Sodium 1 gm/ (Sodium Chloride) 50 mls @ 100 mls/hr IV Q24H [facility] Last Infusion: 03/05/22 13:50 Dose: 0 mls/hr Documented By: CARI Lisinopril (Lisinopril 20 Mg Tablet) 20 mg PO DAILY [facility]; Protocol Last Admin: 03/05/22 08:54 Dose: 20 mg Documented By: JORGE ALBERTO Morphine Sulfate (Morphine Sulfate 4 Mg/Ml Cartridge) 4 mg IVPUSH Q6H PRN; Protocol PRN Reason: Pain, Severe (Pain Scale 7-10) Multivitamins/Vitamin C (Multivitamin Tablet) 1 tab PO DAILY [facility] Last Admin: 03/05/22 08:54 Dose: 1 tab Documented By: JORGE ALBERTO Nicotine (Nicotine 21 Mg Patch.Td24) 21 mg TRANSDERMA DAILY [facility] Last Admin: 03/05/22 12:47 Dose: Not Given Documented By: CARI Non-Admin Reason: Med Not Available Ondansetron HCl (Ondansetron Hcl 4 Mg/2 Ml Vial) 4 mg IVPUSH Q8H PRN PRN Reason: Nausea and Vomiting Pantoprazole Sodium (Pantoprazole Sodium 40 Mg/10 Ml Vial) 40 mg IVPUSH BID@0630,1630 [facility] Last Admin: 03/06/22 05:51 Dose: 40 mg Documented By: SOUMYA Pharmacy Consult (Consult Rx Perform Med Rec) 1 each MISCELLANE ONCE PRN PRN Reason: Consult order Pharmacy Consult (Consult Rx Etoh Phenob Im/Po) 1 each MISCELLANE ONCE PRN; Protocol PRN Reason: Consult order Phenobarbital (Phenobarbital 30 Mg Tablet) 60 mg PO BID [facility]; Protocol Stop: 03/07/22 09:01 Last Admin: 03/05/22 20:43 Dose: 60 mg Documented By: JOSE LUIS Phenobarbital (Phenobarbital 30 Mg Tablet) 30 mg PO BID [facility]; Protocol Stop: 03/09/22 09:01 Phenobarbital (Phenobarbital 30 Mg Tablet) 30 mg PO BEDTIME [facility]; Protocol Stop: 03/10/22 21:01 Pyridoxine HCl (Pyridoxine Hcl (Vitamin B6) 50 Mg Tablet) 100 mg PO DAILY [facility] Last Admin: 03/05/22 11:43 Dose: 100 mg Documented By: CARI Sodium Chloride (0.9 % Sodium Chloride Flush 3 Ml Syringe) 3 ml IVFLUSH QSHIFT [facility] Last Admin: 03/05/22 23:35 Dose: Not Given Documented By: PALOMA Non-Admin Reason: IV Running Thiamine HCl (Thiamine Hcl 100 Mg Tablet) 100 mg PO DAILY [facility] Last Admin: 03/05/22 08:54 Dose: 100 mg Documented By: JORGE ALBERTO Labs CBC & Chem 7: 03/06/22 05:45 03/06/22 05:45 Labs: Laboratory Results - last 24 hr 03/04/22 03/05/22 03/06/22 20:51 16:10 05:45 MCV 105.9 H MCH 34.0 H MCHC 32.2 RDW 18.2 H Plt Count 39 L D MPV 12.4 Absolute Nucleated RBC 0.000 Nucleated RBC % (auto) 0.0 PT INR Anion Gap Estim Creat Clear Calc Estimated GFR Random Glucose Calcium Magnesium Total Bilirubin AST ALT Alkaline Phosphatase Total Protein Albumin Peritoneal WBC 0.105 Peritoneal RBC < 0.002 Periton Neutrophils 1 Periton Lymphocytes 3 Peritoneal Monocytes 69 Peritoneal Other Cells 27 Blood Type A Positive Antibody Screen NEGATIVE Crossmatch See Detail 03/06/22 03/06/22 05:45 05:45 MCV MCH MCHC RDW Plt Count MPV Absolute Nucleated RBC Nucleated RBC % (auto) PT 18.5 H INR 1.6 H Anion Gap 8 L Estim Creat Clear Calc 133.8 Estimated GFR > 60 Random Glucose 83 D Calcium 7.2 L D Magnesium 1.6 Total Bilirubin 1.7 H AST 125 H ALT 24 Alkaline Phosphatase 54 D Total Protein 4.6 L D Albumin 2.2 L D Peritoneal WBC Peritoneal RBC Periton Neutrophils Periton Lymphocytes Peritoneal Monocytes Peritoneal Other Cells Blood Type Antibody Screen Crossmatch Microbiology Microbiology Results: Microbiology 03/05/22 16:10 Gram Stain - Final Ascites Fluid Anaerobic Culture - Preliminary No growth to date. Body Fluid Culture - Preliminary No growth to date. Assessment and Plan (1) Alcohol abuse with withdrawal: Status: Acute (2) Alcohol abuse: Status: Acute (3) Esophageal varices: Status: Acute (4) Hematemesis: Status: Acute Plan hospital d#3 46yo M with decompensated EtOH cirrhosis, recent acute variceal hemorrhage, admitted with hematemesis, ascites, and EtOH withdrawal # UGIB with acute blood loss anemia # esophageal varices # portal gastropathy - EGD done 03/05/[address] Dawn showed: ESOPHAGUS:? GE junction at 35 cms, hiatal hernia 35 to 38 cms. Grade 3 four column non-bleeding varices from 25 to 35 cms. Multiple ulcers covered with white exudates likely at the site of recent banding with supeimposed reflux esophagitis. Band ligation was not performed due to extensive ulcerations STOMACH: Moderate portal gastropathy. Grade 2 flap valve and early gastric varices on retroflexed examination of the cardia. No blood in the UGI tract during EGD. - transfuse 2u pRBCs, recheck H+H today and tomorrow - continue octreotide gtt for another 48hr, start nadolol in 24 hr if H+H stable - continue IV PPI - ceftriaxone for SBP prophylaxis d#2 # ascites - no evidence of SBP by PMN count; Cx negative to date but continue ceftriaxone for prophylaxis given GIB # coagulopathy # thrombocytopenia - due to cirrhosis; monitor eleazar platelet count which is dropping # EtOH withdrawal - continue phenobarbital taper # AUD - B-vitamins - Addiction Medicine + Care Team consults - sobriety counseled # HTN - lisinopril # VTE ppx: SCDs In my clinical judgment, the patient requires continued hospitalization for the following reasons: UGIB, IV octreotide, inpt mgmt of EtOH withdrawal Quality Stroke Does the patient have a stroke diagnosis?: No VTE Prior VTE?: No VTE Risk Level:: Medical - moderate - high VTE Device Contraindication: N/A - Device Ordered VTE Drug Contraindication: Treatment Not Indicated
[2022-03-06] MEDS: cefTRIAXone sodium 1 GM in 0.9 % Sodium Chloride 50 ML IV (10:25)
[2022-03-06] MEDS: lisinopriL 20 MG TABLET PO (10:26)
[2022-03-06] MEDS: Thiamine HCL 100 MG TABLET PO (10:26)
[2022-03-06] MEDS: Nicotine 21 MG PATCH.TD24 TRANSDERMA (10:26)
[2022-03-06] MEDS: PHENobarbitaL 30 MG TABLET 60 MG PO ×2 (10:26→20:56)
[2022-03-06] MEDS: Pyridoxine HCl (Vitamin B6) 50 MG TABLET 100 MG PO (10:26)
[2022-03-06] MEDS: Folic Acid 1 MG TABLET PO (10:26)
[2022-03-06] MEDS: 0.9 % Sodium Chloride Flush 3 ML SYRINGE IVFLUSH ×2 (10:27→17:53)
[2022-03-06] MEDS: Multivitamin TABLET 1 TAB PO (10:27)
[2022-03-06] MEDS: Morphine Sulfate 4 MG/ML CARTRIDGE IVPUSH (10:44)
--- NOTE | 2022-03-06 11:07 | HO.POSTANES ---
Post Anesthesia Evaluation Post Anesthesia Evaluation Vital Signs: Vital Signs Temp Pulse Resp BP Pulse Ox O2 Del Method O2 Flow Rate 03/06/22 07:24 98.4 F 81 16 98/62 93 Room Air 03/06/22 03:55 98.2 F 75 18 92/56 L 100 Nasal Cannula 3 03/06/22 00:47 98.5 F 87 16 104/61 98 Nasal Cannula 3 Anesthesia: Monitored Mental Status: Awake Pain Control: Satisfactory Nausea/Vomiting: None Hydration: Adequate Anesthesia-Related Issues: No Anes. Related Issues
--- NOTE | 2022-03-06 11:32 | MHC.CM.PN ---
PT REPORTS HE LIVES WITH HIS MOTHER AND IS INDEPENDENT WITH CARE PT DENIES USING DME OR HAVING HOME SERVICES PT REPORTS HE IS COVID VACCINATED PT SAYS HIS PCP IS CARMELLA CASSIDY HE BELIEVES HE HAS A HCP NAMING HIS MOTHER AND SISTER HIS AGENTS-COPY REQUESTED CURRENT DC PLAN S HOME WITH NO SERVICES PT TO ARRANGE TRANSPORT
--- NOTE | 2022-03-06 15:34 | MHC.RECOVSUP ---
Recovery Support note: This insurance writer met with patient in 371 to discuss alcohol use and recovery supports. Patient acknowledges that he cannot consume alcohol moving forward. Patient reports he plans to maintain complete abstinence. Patient was very receptive of all recovery supports discussed. Patient provided with information on IOP, [facility] and outpatient therapy. Education regarding these resources was provided. Patient interested in being referred to [facility] and a [facility]. Referrals completed by this insurance writer. Patient open to meeting with a lacrosse coach while in the hospital. Discussed case with Josefina Garcia NP. Plan for patient to receive a naltrexone prescription.
--- NOTE | 2022-03-06 18:09 | PC.NURSE ---
P Fine crackles at bilateral bases,patient scheduled for 2-nd unit of blood I Dr. Vance notified E ptient has no complaints
[2022-03-06] MEDS: Furosemide 20 MG/2 ML VIAL IVPUSH (18:43)
--- NOTE | 2022-03-06 19:09 | MHC.RECOVSUP ---
? Reason for consult:Recovery Support o Current location:[facility] o Identified substance use concern:ETOH - Withdrawal - Support ? Intervention: o MAT started or to be started o Community resources provided o Harm reduction discussion ? Plan: o Referral to [facility] o Patient to follow up with [facility] after discharge ? Additional information: Discussed recovery coaching, CSS, AA, [facility] and [facility] peer recovery support centers and what that entails. referred him to the [facility] as we discussed MAT.
--- NOTE | 2022-03-06 20:08 | HO.ADDICTCON ---
History of Present Illness Date of Service: 03/06/2022 Chief Complaint: Alcohol withdrawal ,GI bleed Reason for Consult: AUD HPI Narrative: Patient is a 46 year old male with AUD currently medically admitted with upper GI bleed, ascites and alcohol withdrawal. Patient reports drinking up to a gallon of vodka daily--drinking worsening over the last two years. Reports history of ATS (detox) admission and one brief trial with naltrexone (one day). Family history of AUD. Expressing interest in medication trial at time of discharge Review of Systems Constitutional: Reports malaise Diagnostics Vital Signs (24Hr): Vital Signs - 24 hr 03/05/22 20:29 03/06/22 00:47 03/06/22 03:55 Temperature 98.1 F 98.5 F 98.2 F Pulse Rate 89 87 75 Respiratory Rate 19 16 18 Blood Pressure 110/73 104/61 92/56 L Pulse Oximetry 99 98 100 Oxygen Delivery Method Room Air Nasal Cannula Nasal Cannula Oxygen Flow Rate 3 3 03/06/22 07:24 03/06/22 11:14 03/06/22 12:43 Temperature 98.4 F 98.2 F 98.2 F Pulse Rate 81 79 79 Respiratory Rate 16 18 18 Blood Pressure 98/62 109/66 109/66 Pulse Oximetry 93 92 Oxygen Delivery Method Room Air Room Air Oxygen Flow Rate 03/06/22 12:58 03/06/22 14:49 03/06/22 15:22 Temperature 99 F 99 F 98.0 F Pulse Rate 80 72 75 Respiratory Rate 18 18 18 Blood Pressure 108/66 108/68 110/68 Pulse Oximetry 100 Oxygen Delivery Method Nasal Cannula Oxygen Flow Rate 2.0 03/06/22 19:31 03/06/22 19:54 Temperature 98.4 F 98.4 F Pulse Rate 82 86 Respiratory Rate 20 Blood Pressure 107/74 103/69 Pulse Oximetry 98 Oxygen Delivery Method Oxygen Flow Rate 1.5 BMI result Body Mass Index 26.7 Labs Results: 03/06/22 05:45 03/06/22 05:45 Labs: Laboratory Results - last 48 hr 03/04/22 03/04/22 03/04/22 20:43 20:43 20:43 WBC 10.4 RBC 2.60 L Hgb 8.8 L Hct 26.4 L MCV 101.5 H MCH 33.8 H MCHC 33.3 RDW 18.6 H Plt Count 91 L MPV 12.3 Immature Gran % (Auto) 0.4 Neut % (Auto) 72.9 Lymph % (Auto) 20.8 [place] % (Auto) 5.6 Eos % (Auto) 0.0 Baso % (Auto) 0.3 Lymph # (Auto) 2.2 [place]leicher # (Auto) 0.6 Eos # (Auto) 0.0 Baso # (Auto) 0.0 Abs Immat Gran (auto) 0.04 H Absolute Neuts (auto) 7.6 Absolute Nucleated RBC 0.000 Nucleated RBC % (auto) 0.0 PT 17.4 H INR 1.5 H APTT 33.0 Sodium 136 Potassium 4.2 Chloride 102 Carbon Dioxide 22 Anion Gap 16 BUN 21 H Creatinine 0.86 Estim Creat Clear Calc 116.7 Estimated GFR > 60 Random Glucose 128 H Calcium 9.3 Magnesium Total Bilirubin 2.1 H AST 192 H ALT 44 H Alkaline Phosphatase 92 Total Protein 6.8 Albumin 3.0 L Lipase 98 H Urine Color Urine Appearance Urine pH Ur Specific [place] Urine Protein Urine Glucose (UA) Urine Ketones Urine Blood Urine Nitrite Ur Leukocyte Esterase Urine RBC Urine WBC Ur Squamous Epith Cells Amorphous Sediment Urine Bacteria Urine Mucus Peritoneal WBC Peritoneal RBC [place] Neutrophils [place] Lymphocytes Peritoneal Monocytes Peritoneal Other Cells Stool Occult Blood Urine Opiates Screen Urine Fentanyl Screen Ur Barbiturates Screen Ur Phencyclidine Scrn Ur Amphetamines Screen U Benzodiazepines Scrn Urine Cocaine Screen U Marijuana (THC) Screen COVID-19 ([facility]AN) COVID-19 Clin Com Blood Type Antibody Screen Crossmatch 03/04/22 03/04/22 03/04/22 20:43 20:43 20:51 WBC RBC Hgb Hct MCV MCH MCHC RDW Plt Count MPV Immature Gran % (Auto) Neut % (Auto) Lymph % (Auto) [place] % (Auto) Eos % (Auto) Baso % (Auto) Lymph # (Auto) [place] # (Auto) Eos # (Auto) Baso # (Auto) Abs Immat Gran (auto) Absolute Neuts (auto) Absolute Nucleated RBC Nucleated RBC % (auto) PT INR APTT Sodium Potassium Chloride Carbon Dioxide Anion Gap BUN Creatinine Estim Creat Clear Calc Estimated GFR Random Glucose Calcium Magnesium Total Bilirubin AST ALT Alkaline Phosphatase Total Protein Albumin Lipase Urine Color Urine Appearance Urine pH Ur Specific [place] Urine Protein Urine Glucose (UA) Urine Ketones Urine Blood Urine Nitrite Ur Leukocyte Esterase Urine RBC Urine WBC Ur Squamous Epith Cells Amorphous Sediment Urine Bacteria Urine Mucus Peritoneal WBC Peritoneal RBC [place] Neutrophils [place] Lymphocytes Peritoneal Monocytes Peritoneal Other Cells Stool Occult Blood POSITIVE Urine Opiates Screen Urine Fentanyl Screen Ur Barbiturates Screen Ur Phencyclidine Scrn Ur Amphetamines Screen U Benzodiazepines Scrn Urine Cocaine Screen U Marijuana (THC) Screen COVID-19 ([facility]AN) Negative COVID-19 Clin Com See Note Blood Type A Positive Antibody Screen NEGATIVE Crossmatch See Detail 03/05/22 03/05/22 03/05/22 04:18 04:18 06:28 WBC 7.6 RBC 2.37 L Hgb 8.0 L Hct 24.5 L MCV 103.4 H MCH 33.8 H MCHC 32.7 RDW 19.2 H Plt Count 58 L D MPV 11.6 Immature Gran % (Auto) 0.4 Neut % (Auto) 70.1 Lymph % (Auto) 23.7 [place] % (Auto) 5.0 Eos % (Auto) 0.4 Baso % (Auto) 0.4 Lymph # (Auto) 1.8 [place] # (Auto) 0.4 Eos # (Auto) 0.0 Baso # (Auto) 0.0 Abs Immat Gran (auto) 0.03 Absolute Neuts (auto) 5.3 Absolute Nucleated RBC 0.000 Nucleated RBC % (auto) 0.0 PT INR APTT Sodium Potassium Chloride Carbon Dioxide Anion Gap BUN Creatinine Estim Creat Clear Calc Estimated GFR Random Glucose Calcium Magnesium Total Bilirubin AST ALT Alkaline Phosphatase Total Protein Albumin Lipase Urine Color YELLOW Urine Appearance CLOUDY Urine pH 7.0 Ur Specific [place] 1.020 Urine Protein NEG Urine Glucose (UA) NEG Urine Ketones NEG Urine Blood NEG Urine Nitrite NEG Ur Leukocyte Esterase NEG Urine RBC 0 Urine WBC 0-2 Ur Squamous Epith Cells NONE Amorphous Sediment 3+ Urine Bacteria NONE Urine Mucus 1+ Peritoneal WBC Peritoneal RBC [place] Neutrophils [place] Lymphocytes Peritoneal Monocytes Peritoneal Other Cells Stool Occult Blood Urine Opiates Screen Not Detected Urine Fentanyl Screen Not Detected Ur Barbiturates Screen POSITIVE H Ur Phencyclidine Scrn Not Detected Ur Amphetamines Screen Not Detected U Benzodiazepines Scrn Not Detected Urine Cocaine Screen Not Detected U Marijuana (THC) Screen POSITIVE H COVID-19 ([facility]AN) COVID-19 Clin Com Blood Type Antibody Screen Crossmatch 03/05/22 03/05/22 03/06/22 06:28 16:10 05:45 WBC 4.1 L RBC 1.88 L D Hgb 6.4 L* Hct 19.9 L* MCV 105.9 H MCH 34.0 H MCHC 32.2 RDW 18.2 H Plt Count 39 L D MPV 12.4 Immature Gran % (Auto) Neut % (Auto) Lymph % (Auto) [place] % (Auto) Eos % (Auto) Baso % (Auto) Lymph # (Auto) [place] # (Auto) Eos # (Auto) Baso # (Auto) Abs Immat Gran (auto) Absolute Neuts (auto) Absolute Nucleated RBC 0.000 Nucleated RBC % (auto) 0.0 PT INR APTT Sodium 137 Potassium 4.7 Chloride 107 Carbon Dioxide 22 Anion Gap 13 BUN 19 H Creatinine 0.79 Estim Creat Clear Calc 127.0 Estimated GFR > 60 Random Glucose 130 H Calcium 8.2 L D Magnesium 1.7 Total Bilirubin AST ALT Alkaline Phosphatase Total Protein Albumin Lipase Urine Color Urine Appearance Urine pH Ur Specific [place] Urine Protein Urine Glucose (UA) Urine Ketones Urine Blood Urine Nitrite Ur Leukocyte Esterase Urine RBC Urine WBC Ur Squamous Epith Cells Amorphous Sediment Urine Bacteria Urine Mucus Peritoneal WBC 0.105 Peritoneal RBC < 0.002 [place] Neutrophils 1 [place] Lymphocytes 3 Peritoneal Monocytes 69 Peritoneal Other Cells 27 Stool Occult Blood Urine Opiates Screen Urine Fentanyl Screen Ur Barbiturates Screen Ur Phencyclidine Scrn Ur Amphetamines Screen U Benzodiazepines Scrn Urine Cocaine Screen U Marijuana (THC) Screen COVID-19 ([facility]AN) COVID-19 Clin Com Blood Type Antibody Screen Crossmatch 03/06/22 03/06/22 05:45 05:45 WBC RBC Hgb Hct MCV MCH MCHC RDW Plt Count MPV Immature Gran % (Auto) Neut % (Auto) Lymph % (Auto) [place] % (Auto) Eos % (Auto) Baso % (Auto) Lymph # (Auto) [place] # (Auto) Eos # (Auto) Baso # (Auto) Abs Immat Gran (auto) Absolute Neuts (auto) Absolute Nucleated RBC Nucleated RBC % (auto) PT 18.5 H INR 1.6 H APTT Sodium 133 L Potassium 4.0 Chloride 106 Carbon Dioxide 23 Anion Gap 8 L BUN 16 Creatinine 0.75 Estim Creat Clear Calc 133.8 Estimated GFR > 60 Random Glucose 83 D Calcium 7.2 L D Magnesium 1.6 Total Bilirubin 1.7 H AST 125 H ALT 24 Alkaline Phosphatase 54 D Total Protein 4.6 L D Albumin 2.2 L D Lipase Urine Color Urine Appearance Urine pH Ur Specific [place] Urine Protein Urine Glucose (UA) Urine Ketones Urine Blood Urine Nitrite Ur Leukocyte Esterase Urine RBC Urine WBC Ur Squamous Epith Cells Amorphous Sediment Urine Bacteria Urine Mucus Peritoneal WBC Peritoneal RBC [place] Neutrophils [place] Lymphocytes Peritoneal Monocytes Peritoneal Other Cells Stool Occult Blood Urine Opiates Screen Urine Fentanyl Screen Ur Barbiturates Screen Ur Phencyclidine Scrn Ur Amphetamines Screen U Benzodiazepines Scrn Urine Cocaine Screen U Marijuana (THC) Screen COVID-19 ([facility]AN) COVID-19 Clin Com Blood Type Antibody Screen Crossmatch Imaging Radiology Impressions: ITS Impressions Chest X-Ray 03/04/22 21:04 IMPRESSION: 1. No acute pulmonary process. Abdomen/Pelvis CT 03/04/22 21:29 IMPRESSION: 1. Findings suggesting underlying liver disease/fibrosis and portal hypertension with recanalized umbilical vein, dilated IMV with large perirectal varices, and moderate to large volume ascites. Additional possible small paraesophageal varices. Correlate with history of known liver disease/cirrhosis. 2. Slightly thick-walled appearance of the cecum which could be due to focal colitis or portal colopathy. No additional bowel wall thickening. No dilated bowel loops. Paracentesis Ultrasound 03/05/22 16:30 IMPRESSION: Ultrasound-guided paracentesis. Mental Status Exam Mental Status Exam Level of Consciousness: Awake, Appropriate and Alert Mood Description: Calm Medications Medications Current Medications Acetaminophen (Acetaminophen 325 Mg Tablet) 650 mg PO Q6H PRN PRN Reason: Pain, Mild (Pain Scale 1-3) Last Admin: 03/05/22 20:46 Dose: 650 mg Docusate Sodium (Docusate Sodium 100 Mg Capsule) 100 mg PO DAILY PRN PRN Reason: Constipation Folic Acid (Folic Acid 1 Mg Tablet) 1 mg PO DAILY [facility] Last Admin: 03/06/22 10:26 Dose: 1 mg Octreotide Acetate 500 mcg/ (Sodium Chloride) 501 mls @ 50.1 mls/hr IVCONT .Q10H [facility] Last Admin: 03/06/22 12:45 Dose: 50 mcg/hr, 50.1 mls/hr Ceftriaxone Sodium 1 gm/ (Sodium Chloride) 50 mls @ 100 mls/hr IV Q24H [facility] Last Infusion: 03/06/22 11:30 Dose: Infused Lisinopril (Lisinopril 20 Mg Tablet) 20 mg PO DAILY [facility]; Protocol Last Admin: 03/06/22 10:26 Dose: 20 mg Morphine Sulfate (Morphine Sulfate 4 Mg/Ml Cartridge) 4 mg IVPUSH Q6H PRN; Protocol PRN Reason: Pain, Severe (Pain Scale 7-10) Last Admin: 03/06/22 10:44 Dose: 4 mg Multivitamins/Vitamin C (Multivitamin Tablet) 1 tab PO DAILY [facility] Last Admin: 03/06/22 10:27 Dose: 1 tab Nicotine (Nicotine 21 Mg Patch.Td24) 21 mg TRANSDERMA DAILY [facility] Last Admin: 03/06/22 10:26 Dose: 21 mg Ondansetron HCl (Ondansetron Hcl 4 Mg/2 Ml Vial) 4 mg IVPUSH Q8H PRN PRN Reason: Nausea and Vomiting Pantoprazole Sodium (Pantoprazole Sodium 40 Mg/10 Ml Vial) 40 mg IVPUSH BID@0630,1630 [facility] Last Admin: 03/06/22 17:57 Dose: 40 mg Pharmacy Consult (Consult Rx Perform Med Rec) 1 each MISCELLANE ONCE PRN PRN Reason: Consult order Pharmacy Consult (Consult Rx Etoh Phenob Im/Po) 1 each MISCELLANE ONCE PRN; Protocol PRN Reason: Consult order Phenobarbital (Phenobarbital 30 Mg Tablet) 60 mg PO BID [facility]; Protocol Stop: 03/07/22 09:01 Last Admin: 03/06/22 10:26 Dose: 60 mg Phenobarbital (Phenobarbital 30 Mg Tablet) 30 mg PO BID [facility]; Protocol Stop: 03/09/22 09:01 Phenobarbital (Phenobarbital 30 Mg Tablet) 30 mg PO BEDTIME [facility]; Protocol Stop: 03/10/22 21:01 Pyridoxine HCl (Pyridoxine Hcl (Vitamin B6) 50 Mg Tablet) 100 mg PO DAILY [facility] Last Admin: 03/06/22 10:26 Dose: 100 mg Sodium Chloride (0.9 % Sodium Chloride Flush 3 Ml Syringe) 3 ml IVFLUSH QSHIFT [facility] Last Admin: 03/06/22 17:53 Dose: 3 ml Thiamine HCl (Thiamine Hcl 100 Mg Tablet) 100 mg PO DAILY [facility] Last Admin: 03/06/22 10:26 Dose: 100 mg Allergies Allergies Allergy/AdvReac Type Severity Reaction Status Date / Time No Known Allergies Allergy Unverified 05/08/20 15:09 Assessment & Plan Assessment & Plan (1) Alcohol abuse with withdrawal: Status: Acute Code(s): F10.139 - Alcohol abuse with withdrawal, unspecified Assessment and Plan: -medication options reviewed with patient--not appropriate to start at this time based on clinical picture. will revisit prior to discharge -recovery resources provided I spent ___35___ minutes with the patient and/or on the patient floor today, greater than?50% of which was spent counseling/coordinating care. PMFSH Past Medical History Medical History Alcohol abuse Esophageal varices Hypertension Family History Family History Father Cancer Surgical History Surgical History No pertinent past surgical history Social History Social History Household Members: Family Housing: House Alcohol intake: current Alcohol intake frequency: 3 or more drinks per day Patient Tobacco Use Status: Current everyday Tobacco user Tobacco use type: Cigarette Cigarette Packs Per Day: 1 Cigarettes Per Day: 20.0 Substance Use Type: Marijuana service: No Current occupational status: employed
[2022-03-07 00:28] LABS: Hematocrit 26.8 % (42.0-52.0)
[2022-03-07 03:45] VITALS: BP 108/67; PULSE 88; RESP 18; TEMP 36.2; O2SAT 99
[2022-03-07] MEDS: Pantoprazole Sodium 40 MG/10 ML VIAL IVPUSH ×2 (06:39→16:45)
[2022-03-07 06:51] LABS: INTERNATIONAL NORM RATIO 1.4 (0.9-1.1); Prothrombin Time 16.2 SEC (10.0-13.1)
[2022-03-07 06:53] LABS: Hematocrit 29.4 % (42.0-52.0); Hemoglobin 10.1 g/dl (14.0-18.0); Mean Corpuscular HGB Conc 34.4 g/dl (31.0-36.0); Mean Corpuscular Hemoglobin 33.7 pg (27.0-33.0); Mean Platelet Volume 12.1 fL (9.4-12.4); White Blood Count 7.9 X10*3/uL (4.8-10.8)
[2022-03-07 06:54] LABS: Platelet Count 41 X10*3/uL (160-400)
[2022-03-07 07:14] LABS: Alanine Aminotransferase 30 U/L (0-40); Albumin Level 2.7 g/dL (3.5-5.0); Alkaline Phosphatase 70 U/L (39-117); Anion Gap 10 (12-20); Aspartate Amino Transferase 161 U/L (5-37); Blood Urea Nitrogen 10 mg/dL (9-16); Calcium 7.2 mg/dL (8.4-10.2); Carbon Dioxide 24 mmol/L (22-29); Chloride 101 mmol/L (96-108); Estimated Glomerular Filt Rate > 60; Glucose Random 129 mg/dL (60-115); Magnesium 1.5 mg/dL (1.6-2.6); Potassium 3.6 mmol/L (3.3-5.1); Sodium 131 mmol/L (135-145); Total Protein 5.7 g/dL (6.5-8.0)
[2022-03-07 07:43] VITALS: BP 111/74; PULSE 81; RESP 20; TEMP 36.6; O2SAT 94
[2022-03-07] MEDS: Magnesium Sulfate/H2O 2 GM/50 ML PIGGYBACK IV (09:09)
[2022-03-07] MEDS: 0.9 % Sodium Chloride Flush 3 ML SYRINGE IVFLUSH ×3 (09:11→20:59)
[2022-03-07] MEDS: Nicotine 21 MG PATCH.TD24 TRANSDERMA (09:13)
[2022-03-07] MEDS: Pyridoxine HCl (Vitamin B6) 50 MG TABLET 100 MG PO (09:13)
[2022-03-07] MEDS: Thiamine HCL 100 MG TABLET PO (09:14)
[2022-03-07] MEDS: Folic Acid 1 MG TABLET PO (09:14)
[2022-03-07] MEDS: nadoloL 20 MG TABLET PO (09:14)
[2022-03-07] MEDS: Multivitamin TABLET 1 TAB PO (09:14)
[2022-03-07] MEDS: PHENobarbitaL 30 MG TABLET 60 MG PO (09:14)
[2022-03-07] MEDS: cefTRIAXone sodium 1 GM in 0.9 % Sodium Chloride 50 ML IV (10:12)
--- NOTE | 2022-03-07 10:13 | HO.PM.IMPN ---
Subjective Subjective Date of Service: 03/07/22 Interval History: Had some melena overnight. No abd pain. Not lightheaded. Not tremulous. Committed to sobriety. Review of Systems Review of Systems: Yes all other systems are reviewed and are negative Physical Exam Vital Signs: Vital Signs: Last Vital Signs Temp 97.9 F 03/07/22 07:43 Pulse 81 03/07/22 07:43 Resp 20 03/07/22 07:43 BP 111/74 03/07/22 07:43 Pulse Ox 94 03/07/22 07:43 O2 Del Method 03/07/22 07:43 O2 Flow Rate 2 03/07/22 03:45 BMI result Body Mass Index 26.7 Gen: NAD HEENT: sclera anicteric, moist mucus membranes Neck: supple Lungs: clear to auscultation bilaterally Heart: RRR, no m/r/g Abd: soft, non-tender, minimally distended, paracentesis site C/D/I Ext: no edema Skin: warm/well-perfused Neuro: alert and oriented x3, no focal findings, no asterixis or tremor Psych: appropriate affect Objective Data Active Medications Acetaminophen (Acetaminophen 325 Mg Tablet) 650 mg PO Q6H PRN PRN Reason: Pain, Mild (Pain Scale 1-3) Last Admin: 03/05/22 20:46 Dose: 650 mg Documented By: JOSE LUIS Docusate Sodium (Docusate Sodium 100 Mg Capsule) 100 mg PO DAILY PRN PRN Reason: Constipation Folic Acid (Folic Acid 1 Mg Tablet) 1 mg PO DAILY [facility] Last Admin: 03/07/22 09:14 Dose: 1 mg Documented By: JOSE Octreotide Acetate 500 mcg/ (Sodium Chloride) 501 mls @ 50.1 mls/hr IVCONT .Q10H [facility] Last Admin: 03/06/22 22:48 Dose: 50 mcg/hr, 50.1 mls/hr Documented By: JUANITA Ceftriaxone Sodium 1 gm/ (Sodium Chloride) 50 mls @ 100 mls/hr IV Q24H [facility] Last Infusion: 03/06/22 11:30 Dose: 0 mls/hr Documented By: DENIA Morphine Sulfate (Morphine Sulfate 4 Mg/Ml Cartridge) 4 mg IVPUSH Q6H PRN; Protocol PRN Reason: Pain, Severe (Pain Scale 7-10) Last Admin: 03/06/22 10:44 Dose: 4 mg Documented By: DENIA Multivitamins/Vitamin C (Multivitamin Tablet) 1 tab PO DAILY [facility] Last Admin: 03/07/22 09:14 Dose: 1 tab Documented By: JOSE Nadolol (Nadolol 20 Mg Tablet) 20 mg PO DAILY [facility]; Protocol Last Admin: 03/07/22 09:14 Dose: 20 mg Documented By: JOSE Nicotine (Nicotine 21 Mg Patch.Td24) 21 mg TRANSDERMA DAILY [facility] Last Admin: 03/07/22 09:13 Dose: 21 mg Documented By: JOSE Ondansetron HCl (Ondansetron Hcl 4 Mg/2 Ml Vial) 4 mg IVPUSH Q8H PRN PRN Reason: Nausea and Vomiting Pantoprazole Sodium (Pantoprazole Sodium 40 Mg/10 Ml Vial) 40 mg IVPUSH BID@0630,1630 [facility] Last Admin: 03/07/22 06:39 Dose: 40 mg Documented By: CARSON Pharmacy Consult (Consult Rx Perform Med Rec) 1 each MISCELLANE ONCE PRN PRN Reason: Consult order Pharmacy Consult (Consult Rx Etoh Phenob Im/Po) 1 each MISCELLANE ONCE PRN; Protocol PRN Reason: Consult order Phenobarbital (Phenobarbital 30 Mg Tablet) 30 mg PO BID [facility]; Protocol Stop: 03/09/22 09:01 Phenobarbital (Phenobarbital 30 Mg Tablet) 30 mg PO BEDTIME [facility]; Protocol Stop: 03/10/22 21:01 Pyridoxine HCl (Pyridoxine Hcl (Vitamin B6) 50 Mg Tablet) 100 mg PO DAILY [facility] Last Admin: 03/07/22 09:13 Dose: 100 mg Documented By: JOSE Sodium Chloride (0.9 % Sodium Chloride Flush 3 Ml Syringe) [facility] Last Admin: 03/07/22 09:11 Dose: 3 ml Documented By: JOSE Thiamine HCl (Thiamine Hcl 100 Mg Tablet) 100 mg PO DAILY [facility] Last Admin: 03/07/22 09:14 Dose: 100 mg Documented By: JOSE Labs CBC & Chem 7: 03/07/22 05:52 03/07/22 05:52 Labs: Laboratory Results - last 24 hr 03/04/22 03/07/22 03/07/22 20:51 05:52 05:52 MCV 98.0 D MCH 33.7 H MCHC 34.4 RDW 19.0 H Plt Count 41 L MPV 12.1 Absolute Nucleated RBC 0.000 Nucleated RBC % (auto) 0.0 PT 16.2 H INR 1.4 H Anion Gap Estim Creat Clear Calc Estimated GFR Random Glucose Calcium Magnesium Total Bilirubin AST ALT Alkaline Phosphatase Total Protein Albumin Blood Type A Positive Antibody Screen NEGATIVE Crossmatch See Detail 03/07/22 05:52 MCV MCH MCHC RDW Plt Count MPV Absolute Nucleated RBC Nucleated RBC % (auto) PT INR Anion Gap 10 L Estim Creat Clear Calc 127.0 Estimated GFR > 60 Random Glucose 129 H D Calcium 7.2 L Magnesium 1.5 L Total Bilirubin 2.0 H AST 161 H ALT 30 Alkaline Phosphatase 70 D Total Protein 5.7 L D Albumin 2.7 L D Blood Type Antibody Screen Crossmatch Microbiology Microbiology Results: Microbiology 03/05/22 16:10 Gram Stain - Final Ascites Fluid Anaerobic Culture - Preliminary No growth to date. Body Fluid Culture - Preliminary No growth after 1 day Assessment and Plan (1) Alcohol abuse with withdrawal: Status: Acute (2) Alcohol abuse: Status: Acute (3) Esophageal varices: Status: Acute (4) Hematemesis: Status: Acute Plan hospital d#4 46yo M with decompensated EtOH cirrhosis, recent acute variceal hemorrhage, admitted with hematemesis, ascites, and EtOH withdrawal # UGIB with acute blood loss anemia # esophageal varices # portal gastropathy - EGD done 03/05/[address] Dawn showed: ESOPHAGUS:? GE junction at 35 cms, hiatal hernia 35 to 38 cms. Grade 3 four column non-bleeding varices from 25 to 35 cms. Multiple ulcers covered with white exudates likely at the site of recent banding with supeimposed reflux esophagitis. Band ligation was not performed due to extensive ulcerations STOMACH: Moderate portal gastropathy. Grade 2 flap valve and early gastric varices on retroflexed examination of the cardia. No blood in the UGI tract during EGD. - transfused 2u pRBCs and H+H now stable - continue octreotide gtt for another 24hr, start nadolol now for prevention of variceal hemorrhage - continue IV PPI - ceftriaxone for SBP prophylaxis d#3 # ascites - no evidence of SBP by PMN count; Cx negative to date but continue ceftriaxone for prophylaxis given GIB; ascites albumin level pending # coagulopathy # thrombocytopenia - due to cirrhosis; platelet count slightly improved # EtOH withdrawal - continue phenobarbital taper # AUD - B-vitamins - Addiction Medicine + Care Team consults - sobriety counseled # HTN - change lisinopril to nadolol as above # VTE ppx: SCDs In my clinical judgment, the patient requires continued hospitalization for the following reasons: UGIB, IV octreotide, inpt mgmt of EtOH withdrawal Quality Stroke Does the patient have a stroke diagnosis?: No VTE Prior VTE?: No VTE Risk Level:: Medical - moderate - high VTE Device Contraindication: N/A - Device Ordered VTE Drug Contraindication: Treatment Not Indicated
[2022-03-07] MEDS: Octreotide Acetate 500 MCG in 0.9 % Sodium Chloride 500 ML 50.1 MCG IVCONT ×2 (10:48→20:55)
[2022-03-07 11:30] LABS: Albumin Peritoneal Fluid 0.3
[2022-03-07 11:51] VITALS: BP 121/63; PULSE 75; RESP 18; TEMP 37.7; O2SAT 92
[2022-03-07 15:24] VITALS: BP 108/68; PULSE 71; RESP 18; TEMP 37; O2SAT 98
[2022-03-07 19:27] VITALS: BP 106/67; PULSE 73; RESP 18; TEMP 37.2; O2SAT 96
[2022-03-07] MEDS: PHENobarbitaL 30 MG TABLET PO (20:55)
[2022-03-07 23:58] VITALS: BP 105/64; PULSE 70; RESP 18; TEMP 37.2; O2SAT 96
[2022-03-08 03:51] VITALS: BP 94/58; PULSE 71; RESP 18; TEMP 37.3; O2SAT 97
[2022-03-08] MEDS: Pantoprazole Sodium 40 MG/10 ML VIAL IVPUSH (05:40)
[2022-03-08] MEDS: Octreotide Acetate 500 MCG in 0.9 % Sodium Chloride 500 ML 50.1 MCG IVCONT ×2 (06:03→15:32)
[2022-03-08 06:15] LABS: Hematocrit 27.4 % (42.0-52.0); Hemoglobin 9.2 g/dl (14.0-18.0); Mean Corpuscular HGB Conc 33.6 g/dl (31.0-36.0); Mean Corpuscular Hemoglobin 33.1 pg (27.0-33.0); Mean Corpuscular Volume 98.6 fL (80.0-98.0); Red Blood Count 2.78 X10*6/uL (4.60-5.80); Red Cell Distribution Width 18.9 % (11.0-16.0); White Blood Count 7.1 X10*3/uL (4.8-10.8)
[2022-03-08 06:16] LABS: Platelet Count 41 X10*3/uL (160-400)
[2022-03-08 06:33] LABS: Anion Gap 6 (12-20); Blood Urea Nitrogen 5 mg/dL (9-16); Calcium 6.9 mg/dL (8.4-10.2); Carbon Dioxide 24 mmol/L (22-29); Chloride 105 mmol/L (96-108); Creatinine Clr Calc Pharmacy 141.4; Estimated Glomerular Filt Rate > 60; Glucose Random 131 mg/dL (60-115); Potassium 3.2 mmol/L (3.3-5.1); Sodium 132 mmol/L (135-145)
[2022-03-08 07:50] VITALS: BP 101/63; PULSE 71; RESP 16; TEMP 37.2; O2SAT 90
[2022-03-08 08:21] LABS: Folate 9.2 ng/mL (> or = 4.0); Vitamin B12 1344 pg/mL (200-900)
[2022-03-08] MEDS: Multivitamin TABLET 1 TAB PO (08:25)
[2022-03-08] MEDS: Pyridoxine HCl (Vitamin B6) 50 MG TABLET 100 MG PO (08:25)
[2022-03-08] MEDS: PHENobarbitaL 30 MG TABLET PO ×2 (08:25→21:17)
[2022-03-08] MEDS: Folic Acid 1 MG TABLET PO (08:25)
[2022-03-08] MEDS: Thiamine HCL 100 MG TABLET PO (08:25)
[2022-03-08] MEDS: nadoloL 20 MG TABLET PO (08:25)
[2022-03-08] MEDS: Potassium Chloride Packet 20 MEQ PACKET 40 MEQ PO (08:26)
[2022-03-08] MEDS: Nicotine 21 MG PATCH.TD24 TRANSDERMA (08:26)
[2022-03-08] MEDS: 0.9 % Sodium Chloride Flush 3 ML SYRINGE IVFLUSH ×2 (08:26→15:36)
[2022-03-08] MEDS: cefTRIAXone sodium 1 GM in 0.9 % Sodium Chloride 50 ML IV (09:43)
[2022-03-08 10:04] VITALS: BP 101/63; PULSE 71; O2SAT 90
[2022-03-08 11:05] LABS: Magnesium 1.8 mg/dL (1.6-2.6)
[2022-03-08 11:32] VITALS: BP 90/58; PULSE 75; RESP 17; TEMP 36.8; O2SAT 95
--- NOTE | 2022-03-08 12:21 | HO.PM.IMPN ---
Subjective Subjective Date of Service: 03/08/22 Interval History: melena resolved no abd pain not tremulous Review of Systems Review of Systems: Yes all other systems are reviewed and are negative Physical Exam Vital Signs: Vital Signs: Last Vital Signs Temp 98.2 F 03/08/22 11:32 Pulse 75 03/08/22 11:32 Resp 17 03/08/22 11:32 BP 90/58 L 03/08/22 11:32 Pulse Ox 95 03/08/22 11:32 O2 Del Method 03/08/22 11:32 O2 Flow Rate 2 03/07/22 03:45 BMI result Body Mass Index 26.7 Gen: NAD HEENT: sclera anicteric, moist mucus membranes Neck: supple Lungs: clear to auscultation bilaterally Heart: RRR, no m/r/g Abd: soft, non-tender, minimally distended, paracentesis site C/D/I Ext: no edema Skin: warm/well-perfused Neuro: alert and oriented x3, no focal findings, no asterixis or tremor Psych: appropriate affect Objective Data Active Medications Acetaminophen (Acetaminophen 325 Mg Tablet) 650 mg PO Q6H PRN PRN Reason: Pain, Mild (Pain Scale 1-3) Last Admin: 03/05/22 20:46 Dose: 650 mg Documented By: JOSE LUIS Docusate Sodium (Docusate Sodium 100 Mg Capsule) 100 mg PO DAILY PRN PRN Reason: Constipation Folic Acid (Folic Acid 1 Mg Tablet) 1 mg PO DAILY [facility] Last Admin: 03/08/22 08:25 Dose: 1 mg Documented By: JOSE Octreotide Acetate 500 mcg/ (Sodium Chloride) 501 mls @ 50.1 mls/hr IVCONT .Q10H [facility] Stop: 03/08/22 23:00 Last Admin: 03/08/22 06:03 Dose: 50 mcg/hr, 50.1 mls/hr Documented By: JAMA Ceftriaxone Sodium 1 gm/ (Sodium Chloride) 50 mls @ 100 mls/hr IV Q24H [facility] Last Infusion: 03/08/22 10:13 Dose: 0 mls/hr Documented By: JOSE Morphine Sulfate (Morphine Sulfate 4 Mg/Ml Cartridge) 4 mg IVPUSH Q6H PRN; Protocol PRN Reason: Pain, Severe (Pain Scale 7-10) Last Admin: 03/06/22 10:44 Dose: 4 mg Documented By: DENIA Multivitamins/Vitamin C (Multivitamin Tablet) 1 tab PO DAILY [facility] Last Admin: 03/08/22 08:25 Dose: 1 tab Documented By: JOSE Nadolol (Nadolol 20 Mg Tablet) 20 mg PO DAILY [facility]; Protocol Last Admin: 03/08/22 08:25 Dose: 20 mg Documented By: JOSE Nicotine (Nicotine 21 Mg Patch.Td24) 21 mg TRANSDERMA DAILY [facility] Last Admin: 03/08/22 08:26 Dose: 21 mg Documented By: JOSE Ondansetron HCl (Ondansetron Hcl 4 Mg/2 Ml Vial) 4 mg IVPUSH Q8H PRN PRN Reason: Nausea and Vomiting Pharmacy Consult (Consult Rx Perform Med Rec) 1 each MISCELLANE ONCE PRN PRN Reason: Consult order Pharmacy Consult (Consult Rx Etoh Phenob Im/Po) 1 each MISCELLANE ONCE PRN; Protocol PRN Reason: Consult order Phenobarbital (Phenobarbital 30 Mg Tablet) 30 mg PO BID [facility]; Protocol Stop: 03/09/22 09:01 Last Admin: 03/08/22 08:25 Dose: 30 mg Documented By: JOSE Phenobarbital (Phenobarbital 30 Mg Tablet) 30 mg PO BEDTIME [facility]; Protocol Stop: 03/10/22 21:01 Pyridoxine HCl (Pyridoxine Hcl (Vitamin B6) 50 Mg Tablet) 100 mg PO DAILY [facility] Last Admin: 03/08/22 08:25 Dose: 100 mg Documented By: JOSE Sodium Chloride (0.9 % Sodium Chloride Flush 3 Ml Syringe) 3 ml IVFLUSH QSHIFT [facility] Last Admin: 03/08/22 08:26 Dose: 3 ml Documented By: JOSE Thiamine HCl (Thiamine Hcl 100 Mg Tablet) 100 mg PO DAILY [facility] Last Admin: 03/08/22 08:25 Dose: 100 mg Documented By: JOSE Labs CBC & Chem 7: 03/08/22 05:29 03/08/22 05:29 Labs: Laboratory Results - last 24 hr 03/06/22 03/06/22 03/08/22 05:45 05:45 05:29 MCV 98.6 H MCH 33.1 H MCHC 33.6 RDW 18.9 H Plt Count 41 L MPV 13.0 H Absolute Nucleated RBC 0.000 Nucleated RBC % (auto) 0.0 Smear Path Review SEE NOTE Anion Gap Estim Creat Clear Calc Estimated GFR Random Glucose Calcium Magnesium Vitamin B12 1344 H Folate 9.2 03/08/22 05:29 MCV MCH MCHC RDW Plt Count MPV Absolute Nucleated RBC Nucleated RBC % (auto) Smear Path Review Anion Gap 6 L Estim Creat Clear Calc 141.4 Estimated GFR > 60 Random Glucose 131 H Calcium 6.9 L Magnesium 1.8 Vitamin B12 Folate Microbiology Microbiology Results: Microbiology 03/05/22 16:10 Gram Stain - Final Ascites Fluid Anaerobic Culture - Preliminary No growth to date. Body Fluid Culture - Final No growth after 2 days Assessment and Plan (1) Alcohol abuse with withdrawal: Status: Acute (2) Alcohol abuse: Status: Acute (3) Esophageal varices: Status: Acute (4) Hematemesis: Status: Acute Plan hospital d#5 46yo M with decompensated EtOH cirrhosis, recent acute variceal hemorrhage, admitted with hematemesis, ascites, and EtOH withdrawal # UGIB with acute blood loss anemia # esophageal varices # portal gastropathy - EGD done 03/05/[address] Dawn showed: ESOPHAGUS:? GE junction at 35 cms, hiatal hernia 35 to 38 cms. Grade 3 four column non-bleeding varices from 25 to 35 cms. Multiple ulcers covered with white exudates likely at the site of recent banding with supeimposed reflux esophagitis. Band ligation was not performed due to extensive ulcerations STOMACH: Moderate portal gastropathy. Grade 2 flap valve and early gastric varices on retroflexed examination of the cardia. No blood in the UGI tract during EGD. - transfused 2u pRBCs and H+H now stable - d/c octreotide gtt tonight, started nadolol for prevention of variceal hemorrhage - IV->PO PPI - ceftriaxone for SBP prophylaxis d#4 # ascites - no evidence of SBP by PMN count; Cx negative to date but continue ceftriaxone for prophylaxis given GIB; SAAG 2.1, consistent with portal HTN # coagulopathy # thrombocytopenia - due to cirrhosis; monitor CBC # EtOH withdrawal - continue phenobarbital taper # AUD - B-vitamins - Addiction Medicine + Care Team consults - sobriety counseled # HTN - changed lisinopril to nadolol as above # VTE ppx: SCDs In my clinical judgment, the patient requires continued hospitalization for the following reasons: UGIB, IV octreotide, inpt mgmt of EtOH withdrawal Quality Stroke Does the patient have a stroke diagnosis?: No VTE Prior VTE?: No VTE Risk Level:: Medical - moderate - high VTE Device Contraindication: N/A - Device Ordered VTE Drug Contraindication: Treatment Not Indicated
[2022-03-08] MEDS: Omeprazole 20 MG CAPSULE.DR PO (15:32)
[2022-03-08 15:45] VITALS: BP 103/71; PULSE 70; RESP 18; TEMP 36.8; O2SAT 97
[2022-03-09] VITALS: BP 108/66; PULSE 68; RESP 17; TEMP 37.3; O2SAT 95
[2022-03-09] MEDS: 0.9 % Sodium Chloride Flush 3 ML SYRINGE IVFLUSH ×2 (01:28→08:38)
[2022-03-09 04:00] VITALS: BP 95/56; PULSE 68; RESP 17; TEMP 36.3; O2SAT 95
[2022-03-09] MEDS: Omeprazole 20 MG CAPSULE.DR PO (06:18)
[2022-03-09 07:19] LABS: Hematocrit 28.2 % (42.0-52.0); Hemoglobin 9.4 g/dl (14.0-18.0); Mean Corpuscular HGB Conc 33.3 g/dl (31.0-36.0); Mean Corpuscular Hemoglobin 33.2 pg (27.0-33.0); Mean Corpuscular Volume 99.6 fL (80.0-98.0); Mean Platelet Volume 12.5 fL (9.4-12.4); Red Blood Count 2.83 X10*6/uL (4.60-5.80); Red Cell Distribution Width 19.1 % (11.0-16.0)
[2022-03-09 07:22] LABS: Platelet Count 48 X10*3/uL (160-400)
[2022-03-09 07:39] VITALS: BP 101/65; PULSE 69; RESP 18; TEMP 36.7; O2SAT 98
[2022-03-09 07:44] LABS: Anion Gap 6 (12-20); Blood Urea Nitrogen 5 mg/dL (9-16); Calcium 6.9 mg/dL (8.4-10.2); Carbon Dioxide 25 mmol/L (22-29); Chloride 108 mmol/L (96-108); Creatinine Clr Calc Pharmacy 143.4; Estimated Glomerular Filt Rate > 60; Glucose Random 126 mg/dL (60-115); Magnesium 1.8 mg/dL (1.6-2.6); Potassium 3.8 mmol/L (3.3-5.1); Sodium 135 mmol/L (135-145)
[2022-03-09] MEDS: Thiamine HCL 100 MG TABLET PO (08:37)
[2022-03-09] MEDS: PHENobarbitaL 30 MG TABLET PO (08:37)
[2022-03-09] MEDS: Pyridoxine HCl (Vitamin B6) 50 MG TABLET 100 MG PO (08:37)
[2022-03-09] MEDS: nadoloL 20 MG TABLET PO (08:38)
[2022-03-09] MEDS: cefTRIAXone sodium 1 GM in 0.9 % Sodium Chloride 50 ML IV (08:38)
[2022-03-09] MEDS: Nicotine 21 MG PATCH.TD24 TRANSDERMA (08:38)
[2022-03-09] MEDS: Folic Acid 1 MG TABLET PO (08:38)
[2022-03-09] MEDS: Multivitamin TABLET 1 TAB PO (08:38)
--- NOTE | 2022-03-09 10:50 | P.DS_ITS ---
DS: Providers Provider Date of Service: 03/09/22 Date of admission: 03/04/22 22:20 Primary care physician: Adriana Rivera NP Consults: 03/04/22 22:22 Consult to Gastroenterology Routine Consulting Provider: Gustavo Dawn Reason for consultation: occult GI bleed Has provider been notified: No 03/05/22 12:06 Addiction Medicine Routine Consulting Provider: Josefina Garcia Reason for consultation: AUD Consult to Care Team Routine Comment: Reason for consultation: AUD DS: Diagnosis Discharge Diagnosis (1) Alcohol abuse with withdrawal: Status: Acute (2) Esophageal varices: Status: Acute (3) Decompensated hepatic cirrhosis: Status: Acute (4) Portal hypertensive gastropathy: Status: Acute (5) Essential hypertension: Status: Acute (6) Thrombocytopenia: Status: Acute (7) Anemia due to GI blood loss: Status: Acute (8) Ascites: Status: Acute DS: Summary Hospital Course Hospital Course: from admission H+P by hospitalist Corky Falcon MD, 03/04/22: This is a 46-year-old male with past medical history of abuse, as well as esophageal varices who presents to the hospital with complaints of bloody vomitus .? Patient reports that he woke up at 2 in the morning with multiple episodes of bloody vomiting that resolved around 04:00.? Reports that he could not come to the hospital right away and decided to come to the hospital several hours later.? He reports his last drink was at 12:00, he does have history of withdrawals with no withdrawal seizures.? Patient reports that he was also admi tted to [facility] few weeks ago with the same complaint found to have variceal bleed, he had banding at that time but left AMA.? He reports that he continues to drink and has not followed outpatient with GI.? He is complaining of epigastric abdominal pain, no diarrhea constipation, no urinary symptoms and no lower extremity edema.? No headache or change in vision, numbness tingling.? At this time he does feel like he is withdrawing from alcohol as he has shivers, shakes, feels nervous and agitated.? On arrival to the ED patient was found to have a heart rate of 130 otherwise vitals unremarkable Labs are significant for WBC count of 10.4, hemoglobin of 8.8, hematocrit 26.4 (when compared to a recent H&H from [facility], H&H stable), lipase of 98, UA negative, UDS positive for barbiturates and marijuana.? Patient denies drug use.? Stool occult blood positive Abdominal pelvic CT showed underlying liver disease/fibrosis and portal hypertension with recanalized umbilical vein.? Dilated IMV with large perirectal varices and moderate to large volume ascites.? Additional possible small paraesophageal varices 46yo M with decompensated EtOH cirrhosis, recent acute variceal hemorrhage, admitted with hematemesis, ascites, and EtOH withdrawal # UGIB with acute blood loss anemia # esophageal varices # portal gastropathy - EGD done 03/05/[address] Dawn showed: ESOPHAGUS:? GE junction at 35 cms, hiatal hernia 35 to 38 cms. Grade 3 four column non-bleeding varices from 25 to 35 cms. Multiple ulcers covered with white exudates likely at the site of recent banding with supeimposed reflux esophagitis. Band ligation was not performed due to extensive ulcerations STOMACH: Moderate portal gastropathy. Grade 2 flap valve and early gastric varices on retroflexed examination of the cardia. No blood in the UGI tract during EGD. - He was transfused 2u pRBCs and hemoglobin stabilized. He was treated with octreotide IV infusion for 72 hours. Lisinopril was switched to nadolol for prevention of acute variceal hemorrhage. He was placed on ceftriaxone for SBP prophylaxis. Paracentesis on 03/05/22 removed 3.3L of ascites and there was no evidence of SBP; SAAG was 2.1, consistent with portal hypertension. He was treated with phenobarbital taper for alcohol withdrawal and discharged on acamprosate with follow-up in the [facility] to maintain sobriety. He will need close follow- up Primary Care and Gastroenterology, and eventual, once sober, a liver transplant evaluation. Repeat labs in 1 week were ordered: CBCd, PT/INR, CMP. Time Spent with Patient Time attestation: Total time spent providing and/or coordinating discharge services: Discharge coordination time: Greater than 30 minutes Quality: Safe Use of Opioids Does Pt have an Active Cancer Diagnosis on the Problem List?: No Quality: Stroke Does the patient have a stroke diagnosis?: No Physical Exam Vital Signs: Vital Signs: Last Vital Signs Temp 98.1 F 03/09/22 07:39 Pulse 69 03/09/22 07:39 Resp 18 03/09/22 07:39 BP 101/65 03/09/22 07:39 Pulse Ox 98 03/09/22 07:39 O2 Del Method 03/09/22 07:39 O2 Flow Rate 2 03/07/22 03:45 BMI result Body Mass Index 26.7 Gen: NAD HEENT: sclera anicteric, moist mucus membranes Neck: supple Lungs: clear to auscultation bilaterally Heart: RRR, no m/r/g Abd: soft, non-tender, minimally distended, paracentesis site C/D/I Ext: no edema Skin: warm/well-perfused Neuro: alert and oriented x3, no focal findings, no asterixis or tremor Psych: appropriate affect DS: Data Data Completed and Pending Completed studies during hospitalization [Text1]: Laboratory Results WBC 5.0 X10*3/uL (4.8-10.8) 03/09/22 06:46 RBC 2.83 X10*6/uL (4.60-5.80) L 03/09/22 06:46 Hgb 9.4 g/dl (14.0-18.0) L 03/09/22 06:46 Hct 28.2 % (42.0-52.0) L 03/09/22 06:46 MCV 99.6 fL (80.0-98.0) H 03/09/22 06:46 MCH 33.2 pg (27.0-33.0) H 03/09/22 06:46 MCHC 33.3 g/dl (31.0-36.0) 03/09/22 06:46 RDW 19.1 % (11.0-16.0) H 03/09/22 06:46 Plt Count 48 X10*3/uL (160-400) L 03/09/22 06:46 MPV 12.5 fL (9.4-12.4) H 03/09/22 06:46 Immature Gran % (Auto) 0.4 % (0.0-0.4) 03/05/22 06:28 Neut % (Auto) 70.1 % (45-73) 03/05/22 06:28 Lymph % (Auto) 23.7 % (20-40) 03/05/22 06:28 [place] % (Auto) 5.0 % (2-11) 03/05/22 06:28 Eos % (Auto) 0.4 % (0-4) 03/05/22 06:28 Baso % (Auto) 0.4 % (0-2) 03/05/22 06:28 Lymph # (Auto) 1.8 X10*3/uL (1.2-4.9) 03/05/22 06:28 [place] # (Auto) 0.4 X10*3/uL (0.1-1.2) 03/05/22 06:28 Eos # (Auto) 0.0 X10*3/uL (0.0-0.4) 03/05/22 06:28 Baso # (Auto) 0.0 X10*3/uL (0.0-0.2) 03/05/22 06:28 Abs Immat Gran (auto) 0.03 X10*3/uL (0.00-0.03) 03/05/22 06:28 Absolute Neuts (auto) 5.3 x10*3/uL (2.0-8.3) 03/05/22 06:28 Absolute Nucleated RBC 0.000 X10*3/uL (0.0-0.012) 03/09/22 06:46 Nucleated RBC % (auto) 0.0 /100WBC (0.0-0.2) 03/09/22 06:46 Smear Path Review SEE NOTE 03/06/22 05:45 PT 16.2 SEC (10.0-13.1) H 03/07/22 05:52 INR 1.4 (0.9-1.1) H 03/07/22 05:52 APTT 33.0 SEC (24.1-38.0) 03/04/22 20:43 Sodium 135 mmol/L (135-145) 03/09/22 06:46 Potassium 3.8 mmol/L (3.3-5.1) 03/09/22 06:46 Chloride 108 mmol/L (96-108) 03/09/22 06:46 Carbon Dioxide 25 mmol/L (22-29) 03/09/22 06:46 Anion Gap 6 (12-20) L 03/09/22 06:46 BUN 5 mg/dL (9-16) L 03/09/22 06:46 Creatinine 0.70 mg/dL (0.5-1.4) 03/09/22 06:46 Estim Creat Clear Calc 143.4 03/09/22 06:46 Estimated GFR > 60 03/09/22 06:46 Random Glucose 126 mg/dL (60-115) H 03/09/22 06:46 Calcium 6.9 mg/dL (8.4-10.2) L 03/09/22 06:46 Magnesium 1.8 mg/dL (1.6-2.6) 03/09/22 06:46 Total Bilirubin 2.0 mg/dL (0.0-1.0) H 03/07/22 05:52 AST 161 U/L (5-37) H 03/07/22 05:52 ALT 30 U/L (0-40) 03/07/22 05:52 Alkaline Phosphatase 70 U/L (39-117) D 03/07/22 05:52 Total Protein 5.7 g/dL (6.5-8.0) L D 03/07/22 05:52 Albumin 2.7 g/dL (3.5-5.0) L D 03/07/22 05:52 Lipase 98 U/L (8-78) H 03/04/22 20:43 Vitamin B12 1344 pg/mL (200-900) H 03/06/22 05:45 Folate 9.2 ng/mL (> or = 4.0) 03/06/22 05:45 Urine Color YELLOW 03/05/22 04:18 Urine Appearance CLOUDY 03/05/22 04:18 Urine pH 7.0 (5.0-8.0) 03/05/22 04:18 Ur Specific [place] 1.020 (1.005-1.025) 03/05/22 04:18 Urine Protein NEG MG/DL (NEG-TRACE) 03/05/22 04:18 Urine Glucose (UA) NEG MG/DL (NEG) 03/05/22 04:18 Urine Ketones NEG MG/DL (NEG) 03/05/22 04:18 Urine Blood NEG (NEG) 03/05/22 04:18 Urine Nitrite NEG (NEG) 03/05/22 04:18 Ur Leukocyte Esterase NEG (NEG) 03/05/22 04:18 Urine RBC 0 /HPF (0) 03/05/22 04:18 Urine WBC 0-2 /HPF (0-4) 03/05/22 04:18 Ur Squamous Epith Cells NONE /LPF 03/05/22 04:18 Amorphous Sediment 3+ /LPF 03/05/22 04:18 Urine Bacteria NONE /LPF 03/05/22 04:18 Urine Mucus 1+ /LPF 03/05/22 04:18 Peritoneal WBC 0.105 X10*3/uL 03/05/22 16:10 Peritoneal RBC < 0.002 X10*6/uL 03/05/22 16:10 Periton Neutrophils 1 % 03/05/22 16:10 Periton Lymphocytes 3 % 03/05/22 16:10 Peritoneal Monocytes 69 % 03/05/22 16:10 Peritoneal Other Cells 27 % 03/05/22 16:10 Peritoneal Albumin 0.3 03/05/22 16:10 Stool Occult Blood POSITIVE (NEGATIVE) 03/04/22 20:43 Urine Opiates Screen Not Detected (Not Detect) 03/05/22 04:18 Urine Fentanyl Screen Not Detected (Not Detect) 03/05/22 04:18 Ur Barbiturates Screen POSITIVE (Not Detect) H 03/05/22 04:18 Ur Phencyclidine Scrn Not Detected (Not Detect) 03/05/22 04:18 Ur Amphetamines Screen Not Detected (Not Detect) 03/05/22 04:18 U Benzodiazepines Scrn Not Detected (Not Detect) 03/05/22 04:18 Urine Cocaine Screen Not Detected (Not Detect) 03/05/22 04:18 U Marijuana (THC) Screen POSITIVE (Not Detect) H 03/05/22 04:18 COVID-19 (CHAN) Negative (Negative) 03/04/22 20:43 COVID-19 Clin Com See Note 03/04/22 20:43 Blood Type A Positive 03/04/22 20:51 Antibody Screen NEGATIVE 03/04/22 20:51 Crossmatch See Detail 03/04/22 20:51 Impressions Chest X-Ray 03/04/22 21:04 IMPRESSION: 1. No acute pulmonary process. Abdomen/Pelvis CT 03/04/22 21:29 IMPRESSION: 1. Findings suggesting underlying liver disease/fibrosis and portal hypertension with recanalized umbilical vein, dilated IMV with large perirectal varices, and moderate to large volume ascites. Additional possible small paraesophageal varices. Correlate with history of known liver disease/cirrhosis. 2. Slightly thick-walled appearance of the cecum which could be due to focal colitis or portal colopathy. No additional bowel wall thickening. No dilated bowel loops. Paracentesis Ultrasound 03/05/22 16:30 IMPRESSION: Ultrasound-guided paracentesis. Pending studies at discharge: Pending at discharge 03/05/22 12:38 Cytology [PTH] Routine Discharge Plan Discharge Patient Disposition: Home, Self-Care Discharge Diagnosis: # upper GI bleed with acute blood loss anemia # esophageal varices # portal gastropathy # ascites # cirrhosis # coagulopathy # thrombocytopenia # alcohol withdrawal # alcohol use disorder # hypertension # tobacco abuse Referrals: Adriana Rivera NP [Primary Care Provider] - 1 Week Gustavo Dawn MD [Physician] - 1 Week Josefina Garcia CNP [Nurse Practitioner] - 1 Week Discharge Medications: New acamprosate 333 mg tablet,delayed release (DR/EC) 666 mg PO TID Qty: 84 1RF nadolol 20 mg Tablet 20 mg PO DAILY Qty: 30 0RF Protocol: Hold for SBP/HR < HOLD for SBP < : 90 HOLD for HR < : 60 nicotine 21 mg/24 hr Patch 24 Hour 21 mg transdermal DAILY Qty: 30 0RF omeprazole 20 mg Capsule,Delayed Release(Dr/Ec) 20 mg PO BID@0630,1630 Qty: 30 0RF Continued multivitamin Tablet 1 tab PO DAILY thiamine HCl (vitamin B1) 100 mg Tablet 100 mg PO DAILY folic acid 1 mg Tablet 1 mg PO DAILY pyridoxine (vitamin B6) 100 mg Tablet 100 mg PO DAILY Discontinued lisinopril 20 mg Tablet 20 mg PO DAILY Discharge Orders: Discharge Order (Routine); Ordered 03/09/22 Ordered By: Liv Vance Diet: Advance to usual diet Activity on Discharge: sobriety Stand Alone Forms: Patient Portal Discharge page Other Ambulatory Orders: Complete Blood Count Auto Diff (Routine) Timeframe: 1 Week Facility: [facility] - Location: Laboratory Ordered By: Liv Vance Comprehensive Met. Panel (Routine) Timeframe: 1 Week Facility: [facility] - Location: Laboratory Ordered By: Liv Vance Prothrombin Time INR (Routine) Timeframe: 1 Week Facility: [facility] - Location: Laboratory Ordered By: Liv Vanec Care Plan Goals: sobriety liver health Health Concerns: # upper GI bleed with acute blood loss anemia # esophageal varices # portal gastropathy # cirrhosis # ascites # coagulopathy # thrombocytopenia # alcohol withdrawal # alcohol use disorder # hypertension # tobacco abuse Plan of Treatment: maintain sobriety; use acamprosate to help; follow up with Josefina Garcia, [facility], in 1 week switch lisinopril to nadolol for hypertension; nadolol prevents variceal bleeding restrict sodium to maximum 2000 mg daily recheck labs in 1 week follow up with primary care doctor in 1 week + date pitter in 2 weeks quit smoking; use nicotine patch to quit Assessment: See Discharge Summary Patient Instructions: Cirrhosis (DC)
--- NOTE | 2022-03-09 11:34 | MHC.CM.PN ---
home self care need [facility] transport voucher being prepared
== END 2022-03-09 12:39 | disposition home or self-care (01) | DRG 280 ==
LOC: HO.ED 21:17 → HO.EDOVER 22:25 → HO.S3 03-06 00:49
PROVIDERS: Internal Medicine Gastroenterology; Radiology Diagnostic Radiology; Admitting Provider Internal Medicine; Emergency Provider Emergency Medicine; PCP Nurse Practitioner Family; Visit Provider Family Medicine
PROC: 0W9G3ZZ Drainage of Peritoneal Cavity, Percutaneous Approach (ICD-10-PCS; principal; 2022-03-05 14:00)
PROC: 0DJ08ZZ Inspection of Upper Intestinal Tract, Via Natural or Artificial Opening Endoscopic (ICD-10-PCS; CPT 43235; principal; 2022-03-05 14:50)
DX: K70.31 Alcoholic cirrhosis of liver with ascites (principal); I85.11 Secondary esophageal varices with bleeding; K22.11 Ulcer of esophagus with bleeding; D68.4 Acquired coagulation factor deficiency; K76.6 Portal hypertension; D62 Acute posthemorrhagic anemia; F17.210 Nicotine dependence, cigarettes, uncomplicated; F10.139 Alcohol abuse with withdrawal, unspecified; I10 Essential (primary) hypertension; D69.59 Other secondary thrombocytopenia; Z20.822 Contact with and (suspected) exposure to COVID-19; Z71.6 Tobacco abuse counseling; Z79.899 Other long term (current) drug therapy
CPT/HCPCS: 36415; 49083; 71045; 74176; 80048; 80053; 80307; 81001; 82042; 82272; 82607; 82746; 83690; 83735; 85014; 85018; 85025; 85027; 85610; 85730; 86850; 86900; 86901; 86923; 87070; 87073; 87205; 87635; 88112; 88305; 89051; 96361; 96372; 96374; 96375; 97162; 99285; J0696; J1940; J2270; J2354; J2405; J2560; J3360; J3475; P9016; P9047

== ENCOUNTER 2022-03-16 19:54 | Emergency (ER) | payer MEDICAID, SELFPAY ==
--- NOTE | ~2022-03-16 | XR_ITS ---
EXAMINATION: XR KNEE, RIGHT CLINICAL INFORMATION: Fall with knee injury COMPARISON: None TECHNIQUE: Four views of the right knee. FINDINGS: Bones and soft tissues are normal. No fracture or joint effusion. Alignment is anatomic. Joint spaces are well maintained. No abnormal soft tissue calcification. XR/XR knee RT 3V IMPRESSION: No evidence of a traumatic injury involving the right knee
--- NOTE | 2022-03-16 20:11 | ED.ALCOHOL ---
HPI - Alcohol General Chief Complaint: Fall Stated Complaint: ETOH Time Seen by Provider: 03/16/22 20:11 Source: patient Mode of arrival: EMS Limitations: other (intoxicated but alert and oriented) History of Present Illness HPI narrative: Tripped outside scraping his right knee and fracturing his upper incisors, Patient states he is up to date on his tetanous MD complaint: alcohol intoxication Last drink: Just prior to admission Chronic alcohol use: Yes Previous visits for alcohol intoxication: Yes Recent trauma: Yes Associated symptoms: denies other symptoms Treatments prior to arrival: none Related Data Home Medications Medication Instructions Recorded Confirmed folic acid 1 mg tablet 1 mg PO DAILY 03/04/22 03/04/22 multivitamin 1 tab PO DAILY 03/04/22 03/04/22 pyridoxine (vitamin B6) 100 mg 100 mg PO DAILY 03/04/22 03/04/22 tablet thiamine HCl (vitamin B1) 100 mg 100 mg PO DAILY 03/04/22 03/04/22 tablet Previous Rx's Medication Instructions Recorded acamprosate 333 mg tablet,delayed 666 mg PO TID #84 tabs 03/09/22 release nadolol 20 mg tablet 20 mg PO DAILY #30 tabs 03/09/22 nicotine 21 mg/24 hr daily 21 mg transdermal DAILY #30 ea 03/09/22 transdermal patch omeprazole 20 mg capsule,delayed 20 mg PO BID@0630,1630 #30 caps 03/09/22 release Allergies Allergy/AdvReac Type Severity Reaction Status Date / Time No Known Allergies Allergy Unverified 05/08/20 15:09 Review of Systems Constitutional: Constitutional: Reports no additional constitutional complaints Eyes: Eyes: Reports no additional eye complaints ENT: Denies dizziness Cardiovascular: Cardiovascular: Reports no additional cardiovascular complaints Respiratory: Respiratory: Reports as per HPI Gastrointestinal: Gastrointestinal: Reports no additional gastrointestinal complaints Musculoskeletal: Musculoskeletal: Reports no additional musculoskeletal complaints Integumentary/Breasts: Skin/Breast: Denies rash Neurologic: Reports system reviewed and no additional complaints, except as documented, Denies dizziness and Denies Sensory deficit (Neuro) Psychiatric: Psychiatric: Denies anxiety PMFSH Past Medical History Medical History Alcohol abuse Cirrhosis Decompensated hepatic cirrhosis Esophageal varices Hypertension Surgical History No pertinent past surgical history Family History Family History Father Cancer Social History Social History Household Members: Family Housing: House Alcohol intake: current Alcohol intake frequency: 3 or more drinks per day Patient Tobacco Use Status: Current everyday Tobacco user Tobacco use type: Cigarette Cigarette Packs Per Day: 1 Cigarettes Per Day: 20.0 Substance Use Type: Marijuana Advance Directives: No Advance Directives Information Provided: No service: No Current occupational status: employed Physical Exam ED Vital Signs: Vital Signs - 24 hr 03/16/22 20:15 Pulse Rate 89 Respiratory Rate 16 Blood Pressure 103/67 Pulse Oximetry 97 Oxygen Delivery Method Room Air BMI result Body Mass Index 26.6 Const Other: Male looking older than stated age, intoxicated Nutritional Appearance: average body habitus Orientation/consciousness: oriented to person and patient oriented x3 Limitations: no limitations HENMT Other: 2 upper incisors with dental fractures, no laxity Head: Yes normal to inspection Ears: external ears normal General nose exam: Normal external nose present Mouth: Normal oral and palatal mucosa present and oropharynx normal Throat: Yes posterior oropharynx normal Eyes General: appearance normal, both eyes and all related structures Neck Neck: Yes normal visual inspection Chest Chest palpation & inspection: normal inspection of the chest Resp Auscultation: clear to auscultation bilaterally Cardio Jugular venous distension: no JVD Rate: regular rate Rhythm: regular rhythm Heart sounds: S1 normal heart sound present and S2 normal heart sound present GI Inspection: Yes normal to inspection Palpation (GI): Soft to palpation, nontender and No hepatosplenomegaly present Auscultation: normal bowel sounds General: Yes no CVA tenderness Back/Spine/Pelvis Back: no CVA tenderness Skin Other: abrasion to right knee Neuro General: oriented to person and patient oriented x3 Cranial nerves: Yes CN's II-XII intact bilaterally Motor exam (neuro): 5/5 motor strength present throughout Sensory Exam: No Sensory deficit (Neuro) Extrem Other: right knee with tenderness to palpation, both legs chronically swollen secondary to edema Psych Appearance: grossly normal Course Reevaluation(s) Reevaluation #1: Patient is an alcoholic with cirrhosis who is intoxicated, fell, chipped his incisors and scraped his knee. He can go home with a sober ride Time: 20:29 MDM - Alcohol Imaging Data right knee: My impression: no fractuer Discharge Plan Discharge Clinical Impression: Cirrhosis, Ascites, Alcohol abuse, Abrasion of knee Patient Disposition: Home, Self-Care Instructions: Abuse of Alcohol (ED), Abrasion (ED), Cirrhosis (ED) Prescriptions: No Action multivitamin Tablet 1 tab PO DAILY thiamine HCl (vitamin B1) 100 mg Tablet 100 mg PO DAILY folic acid 1 mg Tablet 1 mg PO DAILY pyridoxine (vitamin B6) 100 mg Tablet 100 mg PO DAILY acamprosate 333 mg tablet,delayed release (DR/EC) 666 mg PO TID Qty: 84 1RF nadolol 20 mg Tablet 20 mg PO DAILY Qty: 30 0RF Protocol: Hold for SBP/HR < HOLD for SBP < : 90 HOLD for HR < : 60 nicotine 21 mg/24 hr Patch 24 Hour 21 mg transdermal DAILY Qty: 30 0RF omeprazole 20 mg Capsule,Delayed Release(Dr/Ec) 20 mg PO BID@0630,1630 Qty: 30 0RF Referrals: Physician,Nonstaff [Physician] - 1 week
[2022-03-16 20:15] VITALS: BP 103/67; PULSE 89; RESP 16; O2SAT 97
[2022-03-16 20:22] VITALS: BP 108/52; PULSE 80; O2SAT 98; BMI 26.6
== END 2022-03-16 21:13 | disposition home or self-care (01) ==
PROVIDERS: Emergency Provider Emergency Medicine; PCP Nurse Practitioner Family
DX: S80.211A Abrasion, right knee, initial encounter (principal); X58.XXXA Exposure to other specified factors, initial encounter; F10.10 Alcohol abuse, uncomplicated; K74.60 Unspecified cirrhosis of liver; R18.8 Other ascites; Y90.9 Presence of alcohol in blood, level not specified; I10 Essential (primary) hypertension; F17.210 Nicotine dependence, cigarettes, uncomplicated; F12.90 Cannabis use, unspecified, uncomplicated; Y93.9 Activity, unspecified; Y92.9 Unspecified place or not applicable; Y99.9 Unspecified external cause status
CPT/HCPCS: 73562; 99282; 99283

== ENCOUNTER 2022-04-12 12:15 | Emergency (ER) | payer MEDICAID, SELFPAY ==
[2022-04-12] VITALS (9 sets, daily range): BP systolic 110–146; BP diastolic 58–99; PULSE 84–102; RESP 15–20; TEMP 36.6–37.2; O2SAT 94–98; BMI 26.4
[2022-04-12 12:36] LABS: MANUAL DIFF FLAG NO
[2022-04-12 12:37] LABS: Basophils Percent Auto 0.8 % (0-2); Eosinophils Absolute Auto 0.2 X10*3/uL (0.0-0.4); Eosinophils Percent Auto 3.6 % (0-4); Hematocrit 29.4 % (42.0-52.0); Hemoglobin 9.6 g/dl (14.0-18.0); Imm Gran Abs Auto 0.02 X10*3/uL (0.00-0.03); Imm Gran Pct Auto 0.4 % (0.0-0.4); Lymphocytes Absolute Auto 1.7 X10*3/uL (1.2-4.9); Lymphocytes Percent Auto 33.7 % (20-40); Mean Corpuscular HGB Conc 32.7 g/dl (31.0-36.0); Mean Corpuscular Hemoglobin 32.9 pg (27.0-33.0); Mean Corpuscular Volume 100.7 fL (80.0-98.0); Mean Platelet Volume 11.2 fL (9.4-12.4); Monocytes Absolute Auto 0.4 X10*3/uL (0.1-1.2); Monocytes Percent Auto 8.3 % (2-11); Neutrophils Absolute Auto 2.6 x10*3/uL (2.0-8.3); Neutrophils Percent Auto 53.2 % (45-73); Red Blood Count 2.92 X10*6/uL (4.60-5.80); Red Cell Distribution Width 18.9 % (11.0-16.0)
[2022-04-12 12:38] LABS: Platelet Count 79 X10*3/uL (160-400)
[2022-04-12 13:04] LABS: Alanine Aminotransferase 20 U/L (0-40); Albumin Level 2.7 g/dL (3.5-5.0); Alkaline Phosphatase 89 U/L (39-117); Anion Gap 14 (12-20); Aspartate Amino Transferase 71 U/L (5-37); Bilirubin Direct 1.3 mg/dL (0.0-0.5); Bilirubin Total 2.8 mg/dL (0.0-1.0); Blood Urea Nitrogen 4 mg/dL (9-16); Calcium 8.1 mg/dL (8.4-10.2); Carbon Dioxide 23 mmol/L (22-29); Chloride 105 mmol/L (96-108); Estimated Glomerular Filt Rate > 60; Glucose Random 176 mg/dL (60-115); Lipase 77 U/L (8-78); Potassium 3.7 mmol/L (3.3-5.1); Sodium 138 mmol/L (135-145); Total Protein 6.7 g/dL (6.5-8.0)
--- NOTE | 2022-04-12 20:10 | ED_ITS ---
HPI - Abdominal Pain General Chief Complaint: Abdominal Pain Stated Complaint: Bloating/Abd pain Time Seen by Provider: 04/12/22 20:10 Source: patient Mode of arrival: ambulatory Limitations: no limitations History of Present Illness HPI narrative: 46 yo male with history of alcoholic cirrhosis, recent admission here for GI bleed with esophageal and gastric varices as well as portal HTN gasatropathy requiring 2 units PRBC, ascites requiring paracentesis yielding 3.3L during that admission who presents to the ER for evaluation of 9/10 abdominal pain, bloating and distention for the last 2-3 days. He reports his symptoms worsened today when he got up out of bed and his abdomen felt larger than yesterday. He c ontinues to drink alcohol but has cut back, only had 2-3 nips today per his report. He has not followed up with GI after his admission here. He denies any fever, chills, N/V/D. He reports the abdominal distention is making him SOB. No cough or SOTO, no chest pain. MD elicited complaint: abdominal pain Pertinent past history: other (decompensated etoh cirrhosis) Onset (ago): day(s) (3) Pain Consistency: constant Location: diffuse Severity: severe Pain scale (0-10): 9 Quality: aching Radiation: none Migration to: no migration Exacerbating factors: other (standing up and moving around) Relieving factors: nothing Context: history of similar episodes Associated symptoms: denies other symptoms Related Data Home Medications Medication Instructions Recorded Confirmed folic acid 1 mg tablet 1 mg PO DAILY 03/04/22 03/04/22 multivitamin 1 tab PO DAILY 03/04/22 03/04/22 pyridoxine (vitamin B6) 100 mg 100 mg PO DAILY 03/04/22 03/04/22 tablet thiamine HCl (vitamin B1) 100 mg 100 mg PO DAILY 03/04/22 03/04/22 tablet Previous Rx's Medication Instructions Recorded acamprosate 333 mg tablet,delayed 666 mg PO TID #84 tabs 03/09/22 release nadolol 20 mg tablet 20 mg PO DAILY #30 tabs 03/09/22 nicotine 21 mg/24 hr daily 21 mg transdermal DAILY #30 ea 03/09/22 transdermal patch omeprazole 20 mg capsule,delayed 20 mg PO BID@0630,1630 #30 caps 03/09/22 release spironolactone 25 mg tablet 25 mg PO DAILY #14 tabs 04/12/22 Allergies Allergy/AdvReac Type Severity Reaction Status Date / Time No Known Allergies Allergy Verified 04/12/22 12:24 Review of Systems Review of Systems Constitutional: No Fever, No Chills ENT/Mouth: No sore throat, No Rhinorrhea, No Swallowing Difficulty Eyes: No Eye Pain, No Swelling, No Redness Cardiovascular: No Chest Pain, No SOB, No Orthopnea, + Edema Respiratory: No Cough, No Sputum, No Wheezing, No dyspnea Gastrointestinal: No Nausea, No Vomiting, No Diarrhea, + abdominal Pain, Genitourinary: No Dysuria, No Urinary Frequency, No Hematuria Musculoskeletal: No joint pain, No Myalgias Skin: No Skin Lesions, No rash Neuro: No Weakness, No Numbness, No Dizziness, No Headache Psych: No Anxiety/Panic, No Depression Heme/Lymph: No Bruising, No Lymphadenopathy Endocrine: No Polyuria, No Polydipsia PMFSH Past Medical History Medical History Alcohol abuse Cirrhosis Decompensated hepatic cirrhosis Esophageal varices Hypertension Surgical History No pertinent past surgical history Family History Family History Father Cancer Social History Social History Household Members: Family Housing: House Alcohol intake: current Alcohol intake frequency: 3 or more drinks per day Alcohol type: hard liquor Patient Tobacco Use Status: Current everyday Tobacco user Tobacco use type: Cigarette Cigarette Packs Per Day: 1 Cigarettes Per Day: 20.0 Substance Use Type: Marijuana Advance Directives: No Advance Directives Information Provided: No service: No Current occupational status: employed Physical Exam ED Vital Signs: Vital Signs - 24 hr 04/12/22 12:24 04/12/22 20:00 04/12/22 20:38 Temperature 97.9 F 98.9 F Pulse Rate 102 H 89 91 Respiratory Rate 20 17 17 Blood Pressure 141/97 H 146/99 H 127/80 Pulse Oximetry 96 96 97 Oxygen Delivery Method Room Air Room Air Room Air 04/12/22 20:53 04/12/22 21:11 04/12/22 21:25 Temperature 98.5 F Pulse Rate 92 87 90 Respiratory Rate 17 20 20 Blood Pressure 123/58 L 114/73 110/74 Pulse Oximetry 95 98 94 Oxygen Delivery Method Room Air Room Air Room Air 04/12/22 21:45 04/12/22 22:00 04/12/22 23:37 Temperature Pulse Rate 84 89 89 Respiratory Rate 17 17 15 Blood Pressure 113/74 115/80 124/85 Pulse Oximetry 96 98 96 Oxygen Delivery Method Room Air Room Air Room Air BMI result Body Mass Index 26.4 Appearance: Alert. Oriented X3. No acute distress. Eyes: Pupils equal, round and reactive to light. ENT: Pharynx normal. Neck: Normal inspection. Neck supple. CVS: Normal heart rate and rhythm. Pulses normal. Respiratory: No respiratory distress. Breath sounds normal. Abdomen: Distended with moderate diffuse tenderness. +fluid wave. +BS x4 Skin: Skin warm and dry. Normal skin color. Normal skin turgor. No rashes. Extremities: 2+lower extremity edema of the lower legs and feet, no erythema, no calf tenderness. Neuro: Oriented X 3. No motor deficit. No sensory deficit. Procedures Paracentesis Time Out Performed: Yes Indication: possible spontaneous bacterial peritonitis Procedure: therapeutic paracentesis Location: RLQ Local Anesthetic: lidocaine 1% and with epi Amount of anesthesia used (mL): 2 Bedside Ultrasound Used: yes, Ascites confirmed and location marked Amount of fluid obtained (mL): 3,700 Fluid: clear and sent to lab for analysis Post Procedure Exam: awake, alert, normal BP, normal HR and normal SpO2 Patient Tolerated Procedure: well and no complications Complications: none Course Course Course Narrative: 46 yo male with history of alcoholic cirrhosis with ascites, portal HTN, and esophageal varies coming in with abdominal pain and distention. Reporting pain is 9/10 and SOB with distention. Recent paracentesis last month without SBP. He would like his abdomen drained due to pain and SOB. He admits to ongoing etoh use. He was counseled extensively on need for sobriety and his liver problems. He is interested in detox. Verbal consent for paracentesis Reevaluation(s) Reevaluation #1: Dr. Araya assisted with paracentesis - 3.6L clear yellow fluid was drained with significant improvement in pain. Fluid doesn't appear to be infected. Will plan to start him on spironolactone and have him follow up with GI. Again discussed the importance of sobriety. He expressed understanding. Given detox resources. Stable for d/c home. MDM - Abdominal Pain Lab Data Result diagrams: 04/12/22 12:31 04/12/22 12:31 Labs: Lab Results 04/12/22 04/12/22 04/12/22 Range/Units 12:31 12:31 20:49 WBC 5.0 (4.8-10.8) X10*3/uL RBC 2.92 L (4.60-5.80) X10*6/uL Hgb 9.6 L (14.0-18.0) g/dl Hct 29.4 L (42.0-52.0) % MCV 100.7 H (80.0-98.0) fL MCH 32.9 (27.0-33.0) pg MCHC 32.7 (31.0-36.0) g/dl RDW 18.9 H (11.0-16.0) % Plt Count 79 L D (160-400) X10*3/uL MPV 11.2 (9.4-12.4) fL Immature Gran % (Auto) 0.4 (0.0-0.4) % Neut % (Auto) 53.2 (45-73) % Lymph % (Auto) 33.7 (20-40) % [place] % (Auto) 8.3 (2-11) % Eos % (Auto) 3.6 (0-4) % Baso % (Auto) 0.8 (0-2) % Lymph # (Auto) 1.7 (1.2-4.9) X10*3/uL [place] # (Auto) 0.4 (0.1-1.2) X10*3/uL Eos # (Auto) 0.2 (0.0-0.4) X10*3/uL Baso # (Auto) 0.0 (0.0-0.2) X10*3/uL Abs Immat Gran (auto) 0.02 (0.00-0.03) X10*3/uL Absolute Neuts (auto) 2.6 (2.0-8.3) x10*3/uL Absolute Nucleated RBC 0.000 (0.0-0.012) X10*3/uL Nucleated RBC % (auto) 0.0 (0.0-0.2) /100WBC Sodium 138 (135-145) mmol/L Potassium 3.7 (3.3-5.1) mmol/L Chloride 105 (96-108) mmol/L Carbon Dioxide 23 (22-29) mmol/L Anion Gap 14 (12-20) BUN 4 L (9-16) mg/dL Creatinine 0.79 (0.5-1.4) mg/dL Estim Creat Clear Calc 127.0 Estimated GFR > 60 Random Glucose 176 H D (60-115) mg/dL Calcium 8.1 L D (8.4-10.2) mg/dL Total Bilirubin 2.8 H (0.0-1.0) mg/dL Direct Bilirubin 1.3 H (0.0-0.5) mg/dL AST 71 H (5-37) U/L ALT 20 (0-40) U/L Alkaline Phosphatase 89 D (39-117) U/L Total Protein 6.7 (6.5-8.0) g/dL Albumin 2.7 L (3.5-5.0) g/dL Lipase 77 (8-78) U/L Peritoneal WBC 0.070 X10*3/uL Peritoneal RBC < 0.002 X10*6/uL [place] Lymphocytes 14 % Peritoneal Monocytes 36 % Peritoneal Other Cells 37 % Discharge Plan Discharge Clinical Impression: Ascites Patient Disposition: Home, Self-Care Instructions: Ascites (ED), Paracentesis (DC) Additional Instructions: You have to stop drinking alcohol Recommend detox Your fluid was not infected Follow up with the GI doctor for further management Take the prescribed medication each morning to help prevent fluid build up back in your abdomen. If you develop new or worsening symptoms call 911 or come back to the ER for further evaluation. Prescriptions: New spironolactone 25 mg tablet 25 mg PO DAILY Qty: 14 0RF No Action multivitamin Tablet 1 tab PO DAILY thiamine HCl (vitamin B1) 100 mg Tablet 100 mg PO DAILY folic acid 1 mg Tablet 1 mg PO DAILY pyridoxine (vitamin B6) 100 mg Tablet 100 mg PO DAILY acamprosate 333 mg tablet,delayed release (DR/EC) 666 mg PO TID Qty: 84 1RF nadolol 20 mg Tablet 20 mg PO DAILY Qty: 30 0RF Protocol: Hold for SBP/HR < HOLD for SBP < : 90 HOLD for HR < : 60 nicotine 21 mg/24 hr Patch 24 Hour 21 mg transdermal DAILY Qty: 30 0RF omeprazole 20 mg Capsule,Delayed Release(Dr/Ec) 20 mg PO BID@0630,1630 Qty: 30 0RF Referrals: Gianni Orozco MD [Physician] - (ETOH cirrhosis, ascites, varices. )
[2022-04-12] MEDS: Albumin Human 25 % 100 ML IV (20:51)
[2022-04-12 22:20] LABS: MN% 87.2 %; PMN% 12.8 %
[2022-04-12 23:16] LABS: RBC Peritoneal Fluid < 0.002 X10*6/uL
[2022-04-12 23:22] LABS: Lymphocyte Peritoneal Fl 14 %
[2022-04-12 23:23] LABS: BF Shift QC OK YES; Monocytes Peritoneal Fl 36 %; Other Peritioneal Fl 37 %
== END 2022-04-13 | disposition home or self-care (01) ==
PROVIDERS: Physician Assistant; Emergency Provider Internal Medicine; PCP Nurse Practitioner Family
DX: K70.31 Alcoholic cirrhosis of liver with ascites (principal); I10 Essential (primary) hypertension; F10.10 Alcohol abuse, uncomplicated; Y90.9 Presence of alcohol in blood, level not specified; F17.210 Nicotine dependence, cigarettes, uncomplicated; F12.90 Cannabis use, unspecified, uncomplicated
CPT/HCPCS: 36415; 49083; 80053; 82248; 83690; 85025; 87071; 87073; 87205; 89051; 96365; 99284; 99285; P9047